=== PATIENT | female | born 1965 | race Caucasian/White ===

== ENCOUNTER 2018-04-10 14:23 | Inpatient (IN) | payer MEDICARE, OTHER ==
[2018-04-10] MEDS: LIDOCAINE 1% (MPF) 5 ML VIAL SC (15:30)
[2018-04-10 15:35] LABS: ADD MAN DIFF? NO
[2018-04-10 15:39] LABS: WHITE BLOOD COUNT 8.9 10^3/ul (4.8-10.8)
[2018-04-10 15:39] LABS: BASOPHILS % 0.3 % (0.0-2.0); EOSINOPHILS # 0.2 10^3/ul (0.0-0.5); EOSINOPHILS % 2.5 % (0.0-7.0); HEMATOCRIT 29.7 % (37.0-47.0); HEMOGLOBIN 8.7 g/dl (12.0-16.0); LYMPHOCYTES # 1.6 10^3/ul (0.8-2.9); LYMPHOCYTES % 17.6 % (15.0-51.0); MEAN CORPUSCULAR HEMOGLOBIN 22.8 pg (29.0-33.0); MEAN CORPUSCULAR HGB CONC 29.3 g/dl (32.0-37.0); MEAN CORPUSCULAR VOLUME 77.7 fl (82.0-101.0); MEAN PLATELET VOLUME 9.5 fl (7.4-10.4); MONOCYTE # 0.5 10^3/ul (0.3-0.9); NEUTROPHIL # 6.5 10^3/ul (1.6-7.5); NEUTROPHILS % 73.3 % (39.0-77.0); PLATELET COUNT 472 10^3/UL (140-415); RED BLOOD COUNT 3.82 10^6/ul (4.20-5.40)
[2018-04-10 16:01] LABS: ANION GAP 10 (5-13); BLOOD UREA NITROGEN 25 mg/dl (7-20); CARBON DIOXIDE 32 mmol/L (21-31); CHLORIDE 97 mmol/L (97-110); CREATININE 0.94 mg/dl (0.44-1.00); Estimated GFR > 60 mL/min (>60); GLUCOSE 249 mg/dl (70-220); POTASSIUM 4.7 mmol/L (3.5-5.1); SODIUM 139 mmol/L (135-144)
[2018-04-10] MEDS: OXYCODONE/ACETAMINOPHEN (5/325) TAB PO (16:39)
[2018-04-10] MEDS: CEFTRIAXONE 1 GM/50 ML (PMX) 50 ML IVPB (16:40)
[2018-04-10] MEDS: MUPIROCIN 2% 22 GM OINT TOP (16:41)
[2018-04-10] MEDS ORDERED: GLUCAGON 1 MG INJ IM (17:30)
[2018-04-10] MEDS ORDERED: GLUCOSE GEL 15 GRAM TUBE PO ×2 (17:30)
[2018-04-10] MEDS ORDERED: GLUCOSE GEL 15 GRAM TUBE BUCCAL (17:30)
[2018-04-10] MEDS ORDERED: NACL 0.9% 3 ML SYG IV (17:30)
[2018-04-10] MEDS ORDERED: DOCUSATE SODIUM 100 MG CAP PO (17:30)
[2018-04-10] MEDS ORDERED: DEXTROSE 50% 50 ML SYRINGE IV ×2 (17:30)
[2018-04-10] MEDS ORDERED: LORAZEPAM 1 MG TAB PO (19:00)
[2018-04-10] MEDS: INSULIN ASPART [NOVOLOG] 3 ML PEN SC (20:43)
[2018-04-10] MEDS: GABAPENTIN 100 MG CAP PO (20:49)
[2018-04-10] MEDS: ATORVASTATIN 10 MG TAB PO (20:52)
[2018-04-10] MEDS: FERROUS SULFATE (EC) 325 MG TAB PO (20:52)
[2018-04-10] MEDS: CEFEPIME 1GM/50 ML (PMX) 50 ML IVPB (21:16)
[2018-04-10] MEDS: HYDROmorphONE 2 MG TAB PO (21:23)
[2018-04-10] MEDS: LINEZOLID 600 MG/D5W (PMX) 300 ML IVPB (21:47)
[2018-04-11] MEDS: ACETAMINOPHEN 325 MG TAB PO (01:40)
[2018-04-11] MEDS: ONDANSETRON 4 MG INJ IV ×2 (01:50→22:02)
[2018-04-11] MEDS: ACCU-CHEK XX (02:00)
[2018-04-11] MEDS: PANTOPRAZOLE (EC) 40 MG TAB PO (06:21)
[2018-04-11 06:44] LABS: ADD MAN DIFF? NO
[2018-04-11] MEDS ORDERED: PANTOPRAZOLE (EC) 40 MG TAB PO (07:00)
[2018-04-11 07:05] LABS: WHITE BLOOD COUNT 8.1 10^3/ul (4.8-10.8)
[2018-04-11 07:05] LABS: BASOPHILS % 0.4 % (0.0-2.0); EOSINOPHILS # 0.2 10^3/ul (0.0-0.5); EOSINOPHILS % 2.1 % (0.0-7.0); HEMATOCRIT 26.8 % (37.0-47.0); LYMPHOCYTES # 1.6 10^3/ul (0.8-2.9); MEAN CORPUSCULAR HEMOGLOBIN 23.2 pg (29.0-33.0); MEAN CORPUSCULAR HGB CONC 29.9 g/dl (32.0-37.0); MEAN CORPUSCULAR VOLUME 77.7 fl (82.0-101.0); MEAN PLATELET VOLUME 10.2 fl (7.4-10.4); MONOCYTE # 0.6 10^3/ul (0.3-0.9); MONOCYTES % 6.8 % (0.0-11.0); NEUTROPHIL # 5.7 10^3/ul (1.6-7.5); NEUTROPHILS % 70.3 % (39.0-77.0); PLATELET COUNT 439 10^3/UL (140-415); RED BLOOD COUNT 3.45 10^6/ul (4.20-5.40); RED CELL DISTRIBUTION WIDTH 15.1 % (11.5-14.5)
[2018-04-11 07:39] LABS: ALANINE AMINOTRANSFERASE 18 IU/L (13-69); ALBUMIN 3.2 g/dl (3.3-4.9); ALBUMIN/GLOBULIN RATIO 0.86; ALKALINE PHOSPHATASE 186 IU/L (42-121); ANION GAP 8 (5-13); ASPARTATE AMINO TRANSFERASE 37 IU/L (15-46); BLOOD UREA NITROGEN 30 mg/dl (7-20); CALCIUM 8.7 mg/dl (8.4-10.2); CARBON DIOXIDE 32 mmol/L (21-31); CHLORIDE 98 mmol/L (97-110); CREATININE 1.16 mg/dl (0.44-1.00); Estimated GFR 49 mL/min (>60); GLUCOSE 251 mg/dl (70-220); MAGNESIUM 1.9 mg/dl (1.7-2.5); PHOSPHORUS 4.8 mg/dl (2.5-4.9); POTASSIUM 4.9 mmol/L (3.5-5.1); SODIUM 138 mmol/L (135-144); TOTAL PROTEIN 6.9 g/dl (6.1-8.1)
[2018-04-11] MEDS: CEFEPIME 1GM/50 ML (PMX) 50 ML IVPB ×2 (09:57→20:31)
[2018-04-11] MEDS: GABAPENTIN 100 MG CAP PO ×3 (09:58→20:31)
[2018-04-11] MEDS: LOSARTAN 25 MG TAB PO (09:59)
[2018-04-11] MEDS: ASCORBIC ACID 500 MG TAB PO (09:59)
[2018-04-11] MEDS: FERROUS SULFATE (EC) 325 MG TAB PO ×2 (09:59→20:31)
[2018-04-11] MEDS: FUROSEMIDE 40 MG TAB PO (09:59)
[2018-04-11] MEDS: FOLIC ACID 1 MG TAB PO (09:59)
[2018-04-11] MEDS: ASPIRIN 81 MG TAB PO (09:59)
[2018-04-11] MEDS: INSULIN GLARGINE [LANTus] (100 UNITS/ML) SYG SC (10:00)
[2018-04-11] MEDS: INSULIN ASPART [NOVOLOG] 3 ML PEN SC ×5 (10:01→20:37)
[2018-04-11] MEDS: ENOXAPARIN 30 MG/0.3 ML SYG SC (10:57)
[2018-04-11] MEDS: LINEZOLID 600 MG/D5W (PMX) 300 ML IVPB ×2 (12:35→22:02)
[2018-04-11] MEDS: HYDROmorphONE 2 MG TAB PO (16:59)
[2018-04-11] MEDS: HYDROmorphONE 1 MG/ML SYG IV (18:34)
[2018-04-11] MEDS: ATORVASTATIN 10 MG TAB PO (20:31)
[2018-04-12] MEDS: ACCU-CHEK XX (02:00)
[2018-04-12] MEDS: HYDROmorphONE 1 MG/ML SYG IV ×2 (04:02→22:18)
[2018-04-12] MEDS: PANTOPRAZOLE (EC) 40 MG TAB PO (05:35)
[2018-04-12 06:08] LABS: ADD MAN DIFF? NO
[2018-04-12 06:15] LABS: WHITE BLOOD COUNT 7.7 10^3/ul (4.8-10.8)
[2018-04-12 06:15] LABS: BASOPHILS % 0.1 % (0.0-2.0); EOSINOPHILS # 0.2 10^3/ul (0.0-0.5); EOSINOPHILS % 2.5 % (0.0-7.0); HEMATOCRIT 26.7 % (37.0-47.0); HEMOGLOBIN 7.8 g/dl (12.0-16.0); LYMPHOCYTES # 1.1 10^3/ul (0.8-2.9); LYMPHOCYTES % 14.6 % (15.0-51.0); MEAN CORPUSCULAR HEMOGLOBIN 22.8 pg (29.0-33.0); MEAN CORPUSCULAR HGB CONC 29.2 g/dl (32.0-37.0); MEAN CORPUSCULAR VOLUME 78.1 fl (82.0-101.0); MEAN PLATELET VOLUME 10.2 fl (7.4-10.4); MONOCYTE # 0.4 10^3/ul (0.3-0.9); MONOCYTES % 5.6 % (0.0-11.0); NEUTROPHIL # 5.9 10^3/ul (1.6-7.5); NEUTROPHILS % 76.7 % (39.0-77.0); PLATELET COUNT 459 10^3/UL (140-415); RED BLOOD COUNT 3.42 10^6/ul (4.20-5.40); RED CELL DISTRIBUTION WIDTH 15.3 % (11.5-14.5)
[2018-04-12 06:38] LABS: PHOSPHORUS 5.1 mg/dl (2.5-4.9)
[2018-04-12 06:38] LABS: MAGNESIUM 2.1 mg/dl (1.7-2.5)
[2018-04-12 06:53] LABS: ANION GAP 8 (5-13); BLOOD UREA NITROGEN 37 mg/dl (7-20); CALCIUM 8.8 mg/dl (8.4-10.2); CARBON DIOXIDE 29 mmol/L (21-31); CHLORIDE 99 mmol/L (97-110); CREATININE 1.33 mg/dl (0.44-1.00); Estimated GFR 41 mL/min (>60); GLUCOSE 275 mg/dl (70-220); POTASSIUM 4.4 mmol/L (3.5-5.1); SODIUM 136 mmol/L (135-144)
[2018-04-12] MEDS: FERROUS SULFATE (EC) 325 MG TAB PO ×2 (09:29→21:56)
[2018-04-12] MEDS: LOSARTAN 25 MG TAB PO (09:30)
[2018-04-12] MEDS: GABAPENTIN 100 MG CAP PO ×3 (09:30→21:58)
[2018-04-12] MEDS: ASCORBIC ACID 500 MG TAB PO (09:30)
[2018-04-12] MEDS: CEFEPIME 1GM/50 ML (PMX) 50 ML IVPB ×2 (09:32→21:06)
[2018-04-12] MEDS: FUROSEMIDE 40 MG TAB PO (09:32)
[2018-04-12] MEDS: ASPIRIN 81 MG TAB PO (09:32)
[2018-04-12] MEDS: FOLIC ACID 1 MG TAB PO (09:32)
[2018-04-12] MEDS: LINEZOLID 600 MG/D5W (PMX) 300 ML IVPB ×2 (09:32→21:55)
[2018-04-12] MEDS: INSULIN ASPART [NOVOLOG] 3 ML PEN SC ×7 (09:40→22:07)
[2018-04-12] MEDS: ENOXAPARIN 30 MG/0.3 ML SYG SC (09:42)
[2018-04-12] MEDS: INSULIN GLARGINE [LANTus] (100 UNITS/ML) SYG SC (09:43)
[2018-04-12] MEDS: SOD FERRIC GLUC COMPLX 125 MG in SOD CHLORIDE 0.9% 100 ML IVPB (17:39)
[2018-04-12] MEDS: LINAGLIPTIN 5 MG TABLET PO (17:39)
[2018-04-12] MEDS: ATORVASTATIN 10 MG TAB PO (21:56)
[2018-04-12 23:53] LABS: ADD UMIC YES; UR ASCORBIC ACID 20 mg/dL (NEGATIVE); UR BACTERIA FEW /HPF (NONE SEEN); UR BILIRUBIN (Dip) NEGATIVE (NEGATIVE); UR BLOOD (Dip) NEGATIVE (NEGATIVE); UR CLARITY SLIGHTLY CLOUDY (CLEAR); UR COLOR YELLOW (YELLOW); UR GLUCOSE (Dip) NEGATIVE (NEGATIVE); UR KETONES (Dip) NEGATIVE (NEGATIVE); UR LEUKOCYTE ESTERASE (Dip) TRACE Leu/ul (NEGATIVE); UR MUCUS FEW /HPF (NONE SEEN); UR NITRITE (Dip) NEGATIVE (NEGATIVE); UR RBC 1 /HPF (0-5); UR SPECIFIC GRAVITY (Dip) 1.017 (1.003-1.030); UR SQUAMOUS EPITHELIAL CELL FEW /HPF (FEW); UR TOTAL PROTEIN (Dip) NEGATIVE (NEGATIVE); UR UROBILINOGEN (Dip) NEGATIVE (NEGATIVE); UR WBC 16 /HPF (0-5)
[2018-04-13] MEDS: ACCU-CHEK XX (02:00)
[2018-04-13] MEDS: HYDROmorphONE 1 MG/ML SYG IV ×3 (04:24→16:26)
[2018-04-13] MEDS: PANTOPRAZOLE (EC) 40 MG TAB PO (05:34)
[2018-04-13 06:09] LABS: ADD MAN DIFF? NO
[2018-04-13 06:17] LABS: BASOPHILS % 0.3 % (0.0-2.0); EOSINOPHILS # 0.3 10^3/ul (0.0-0.5); EOSINOPHILS % 3.2 % (0.0-7.0); HEMATOCRIT 25.9 % (37.0-47.0); HEMOGLOBIN 7.5 g/dl (12.0-16.0); LYMPHOCYTES # 1.5 10^3/ul (0.8-2.9); LYMPHOCYTES % 18.8 % (15.0-51.0); MEAN CORPUSCULAR HEMOGLOBIN 22.7 pg (29.0-33.0); MEAN CORPUSCULAR VOLUME 78.2 fl (82.0-101.0); MEAN PLATELET VOLUME 10.4 fl (7.4-10.4); MONOCYTE # 0.5 10^3/ul (0.3-0.9); MONOCYTES % 6.2 % (0.0-11.0); NEUTROPHIL # 5.5 10^3/ul (1.6-7.5); NEUTROPHILS % 70.9 % (39.0-77.0); PLATELET COUNT 446 10^3/UL (140-415); RED BLOOD COUNT 3.31 10^6/ul (4.20-5.40); RED CELL DISTRIBUTION WIDTH 15.3 % (11.5-14.5)
[2018-04-13 06:17] LABS: WHITE BLOOD COUNT 7.8 10^3/ul (4.8-10.8)
[2018-04-13 06:59] LABS: ANION GAP 7 (5-13); BLOOD UREA NITROGEN 41 mg/dl (7-20); CALCIUM 8.7 mg/dl (8.4-10.2); CARBON DIOXIDE 29 mmol/L (21-31); CHLORIDE 100 mmol/L (97-110); CREATININE 1.41 mg/dl (0.44-1.00); Estimated GFR 39 mL/min (>60); GLUCOSE 163 mg/dl (70-220); POTASSIUM 4.1 mmol/L (3.5-5.1); SODIUM 136 mmol/L (135-144)
[2018-04-13] MEDS: ASPIRIN 81 MG TAB PO (08:02)
[2018-04-13] MEDS: FERROUS SULFATE (EC) 325 MG TAB PO (08:02)
[2018-04-13] MEDS: GABAPENTIN 100 MG CAP PO ×3 (08:03→21:17)
[2018-04-13] MEDS: LOSARTAN 25 MG TAB PO (08:03)
[2018-04-13] MEDS: FOLIC ACID 1 MG TAB PO (08:03)
[2018-04-13] MEDS: ASCORBIC ACID 500 MG TAB PO (08:03)
[2018-04-13] MEDS: LINAGLIPTIN 5 MG TABLET PO (08:03)
[2018-04-13] MEDS: FUROSEMIDE 40 MG TAB PO (08:03)
[2018-04-13] MEDS: CEFEPIME 1GM/50 ML (PMX) 50 ML IVPB ×2 (08:06→21:13)
[2018-04-13] MEDS: INSULIN ASPART [NOVOLOG] 3 ML PEN SC ×7 (08:13→21:00)
[2018-04-13] MEDS: ENOXAPARIN 30 MG/0.3 ML SYG SC (08:14)
[2018-04-13] MEDS: INSULIN GLARGINE [LANTus] (100 UNITS/ML) SYG SC (08:14)
[2018-04-13] MEDS: LINEZOLID 600 MG/D5W (PMX) 300 ML IVPB ×2 (08:31→22:12)
[2018-04-13] MEDS: SOD FERRIC GLUC COMPLX 125 MG in SOD CHLORIDE 0.9% 100 ML IVPB (12:23)
[2018-04-13] MEDS: ATORVASTATIN 10 MG TAB PO (21:13)
[2018-04-13] MEDS: BACITRACIN/POLYMYXIN 28.35 GM OINT TOP (21:19)
[2018-04-14] MEDS: HYDROmorphONE 1 MG/ML SYG IV ×3 (01:54→16:34)
[2018-04-14] MEDS: ACCU-CHEK XX (02:00)
[2018-04-14] MEDS: PANTOPRAZOLE (EC) 40 MG TAB PO (05:23)
[2018-04-14] MEDS: ACETAMINOPHEN 325 MG TAB PO (05:24)
[2018-04-14 05:41] LABS: ADD MAN DIFF? NO
[2018-04-14 05:43] LABS: BASOPHILS % 0.4 % (0.0-2.0); EOSINOPHILS # 0.3 10^3/ul (0.0-0.5); EOSINOPHILS % 3.7 % (0.0-7.0); HEMATOCRIT 26.7 % (37.0-47.0); HEMOGLOBIN 7.8 g/dl (12.0-16.0); LYMPHOCYTES # 1.2 10^3/ul (0.8-2.9); LYMPHOCYTES % 17.5 % (15.0-51.0); MEAN CORPUSCULAR HEMOGLOBIN 22.7 pg (29.0-33.0); MEAN CORPUSCULAR HGB CONC 29.2 g/dl (32.0-37.0); MEAN CORPUSCULAR VOLUME 77.8 fl (82.0-101.0); MEAN PLATELET VOLUME 9.8 fl (7.4-10.4); MONOCYTE # 0.6 10^3/ul (0.3-0.9); MONOCYTES % 7.8 % (0.0-11.0); NEUTROPHIL # 4.9 10^3/ul (1.6-7.5); NEUTROPHILS % 70.2 % (39.0-77.0); PLATELET COUNT 425 10^3/UL (140-415); RED BLOOD COUNT 3.43 10^6/ul (4.20-5.40); RED CELL DISTRIBUTION WIDTH 15.6 % (11.5-14.5)
[2018-04-14 06:26] LABS: ANION GAP 6 (5-13); BLOOD UREA NITROGEN 42 mg/dl (7-20); CALCIUM 8.7 mg/dl (8.4-10.2); CARBON DIOXIDE 29 mmol/L (21-31); CHLORIDE 103 mmol/L (97-110); CREATININE 1.34 mg/dl (0.44-1.00); Estimated GFR 41 mL/min (>60); GLUCOSE 185 mg/dl (70-220); POTASSIUM 4.3 mmol/L (3.5-5.1); SODIUM 138 mmol/L (135-144)
[2018-04-14] MEDS: GABAPENTIN 100 MG CAP PO ×3 (07:38→21:00)
[2018-04-14] MEDS: CEFEPIME 1GM/50 ML (PMX) 50 ML IVPB (07:40)
[2018-04-14] MEDS: LINAGLIPTIN 5 MG TABLET PO (07:40)
[2018-04-14] MEDS: FUROSEMIDE 40 MG TAB PO (07:40)
[2018-04-14] MEDS: ASPIRIN 81 MG TAB PO (07:41)
[2018-04-14] MEDS: ASCORBIC ACID 500 MG TAB PO (07:41)
[2018-04-14] MEDS: FOLIC ACID 1 MG TAB PO (07:41)
[2018-04-14] MEDS: LINEZOLID 600 MG/D5W (PMX) 300 ML IVPB ×2 (07:41→21:31)
[2018-04-14] MEDS: LOSARTAN 25 MG TAB PO (07:41)
[2018-04-14] MEDS: INSULIN ASPART [NOVOLOG] 3 ML PEN SC ×7 (07:49→21:00)
[2018-04-14] MEDS: INSULIN GLARGINE [LANTus] (100 UNITS/ML) SYG SC (07:50)
[2018-04-14] MEDS: ENOXAPARIN 30 MG/0.3 ML SYG SC (07:50)
[2018-04-14] MEDS: BACITRACIN/POLYMYXIN 28.35 GM OINT TOP ×2 (09:50→21:32)
[2018-04-14] MEDS: SOD FERRIC GLUC COMPLX 125 MG in SOD CHLORIDE 0.9% 100 ML IVPB (13:30)
[2018-04-14] MEDS: ATORVASTATIN 10 MG TAB PO (21:27)
[2018-04-14] MEDS: MEROPENEM 1 GM/50ML(PMX) 50 ML IVPB (23:26)
[2018-04-15] MEDS: ACCU-CHEK XX (02:00)
[2018-04-15] MEDS: PANTOPRAZOLE (EC) 40 MG TAB PO (06:00)
[2018-04-15] MEDS: INSULIN ASPART [NOVOLOG] 3 ML PEN SC ×7 (08:00→21:00)
[2018-04-15] MEDS: MEROPENEM 1 GM/50ML(PMX) 50 ML IVPB ×2 (08:14→21:15)
[2018-04-15] MEDS: ASCORBIC ACID 500 MG TAB PO (08:15)
[2018-04-15] MEDS: LINAGLIPTIN 5 MG TABLET PO (08:15)
[2018-04-15] MEDS: FOLIC ACID 1 MG TAB PO (08:15)
[2018-04-15] MEDS: LOSARTAN 25 MG TAB PO (08:15)
[2018-04-15] MEDS: ASPIRIN 81 MG TAB PO (08:15)
[2018-04-15] MEDS: FUROSEMIDE 40 MG TAB PO (08:15)
[2018-04-15] MEDS: GABAPENTIN 100 MG CAP PO ×3 (08:15→21:02)
[2018-04-15] MEDS: INSULIN GLARGINE [LANTus] (100 UNITS/ML) SYG SC (08:38)
[2018-04-15] MEDS: BACITRACIN/POLYMYXIN 28.35 GM OINT TOP ×2 (08:40→21:14)
[2018-04-15] MEDS: ENOXAPARIN 30 MG/0.3 ML SYG SC (08:40)
[2018-04-15] MEDS: LINEZOLID 600 MG/D5W (PMX) 300 ML IVPB ×2 (09:56→21:56)
[2018-04-15] MEDS: SOD FERRIC GLUC COMPLX 125 MG in SOD CHLORIDE 0.9% 100 ML IVPB (14:06)
[2018-04-15 16:00] LABS: AADO2 Arterial 46.9 mmHg (7.0-24.0); Allen Test ACCEPTAB; Arterial Base Excess 4.8 mmol/L (-3.0-3); Arterial Blood Gas Oxygen Sat 98.1 mmHG (95.0-98.0); Arterial COHb 0.6 % (0.0-3.0); Arterial Fraction of Oxyhgb 97.3 % (93.0-99.0); Arterial HCO3 29.6 mmol/L (22.0-26.0); Arterial MetHb 0.2 % (0.0-1.5); Arterial pCO2 44.9 mmhg (35-45); MODE NASAL CANNULA; Site Right Radial
[2018-04-15] MEDS: ALBUTEROL/IPRATROPIUM (NEB) 3 ML AMP HHN ×2 (16:01→21:07)
[2018-04-15 16:08] LABS: ABNORMAL IP MESSAGE 1; BASOPHILS % 0.3 % (0.0-2.0); EOSINOPHILS % 0.6 % (0.0-7.0); HEMATOCRIT 27.5 % (37.0-47.0); HEMOGLOBIN 8.1 g/dl (12.0-16.0); LYMPHOCYTES # 0.5 10^3/ul (0.8-2.9); LYMPHOCYTES % 7.6 % (15.0-51.0); MEAN CORPUSCULAR HEMOGLOBIN 22.8 pg (29.0-33.0); MEAN CORPUSCULAR HGB CONC 29.5 g/dl (32.0-37.0); MEAN CORPUSCULAR VOLUME 77.5 fl (82.0-101.0); MEAN PLATELET VOLUME 9.8 fl (7.4-10.4); MONOCYTE # 0.4 10^3/ul (0.3-0.9); MONOCYTES % 6.2 % (0.0-11.0); NEUTROPHIL # 5.5 10^3/ul (1.6-7.5); PLATELET COUNT 405 10^3/UL (140-415); RED BLOOD COUNT 3.55 10^6/ul (4.20-5.40); RED CELL DISTRIBUTION WIDTH 15.9 % (11.5-14.5)
[2018-04-15 16:08] LABS: WHITE BLOOD COUNT 6.5 10^3/ul (4.8-10.8)
[2018-04-15 16:09] LABS: ADD MAN DIFF? NO
[2018-04-15 16:27] LABS: ANION GAP 7 (5-13); BLOOD UREA NITROGEN 26 mg/dl (7-20); CALCIUM 8.7 mg/dl (8.4-10.2); CARBON DIOXIDE 32 mmol/L (21-31); CHLORIDE 103 mmol/L (97-110); CREATININE 0.94 mg/dl (0.44-1.00); Estimated GFR > 60 mL/min (>60); GLUCOSE 103 mg/dl (70-220); POTASSIUM 4.1 mmol/L (3.5-5.1); SODIUM 142 mmol/L (135-144)
[2018-04-15 16:28] LABS: AMMONIA < 9 umol/l (9-30)
[2018-04-15] MEDS: ATORVASTATIN 10 MG TAB PO (21:01)
[2018-04-15] MEDS: NYSTATIN 30 GM POWDER BTL TOP (21:14)
[2018-04-15] MEDS: HYDROmorphONE 1 MG/ML SYG IV (21:15)
[2018-04-16] MEDS: ACCU-CHEK XX (02:00)
[2018-04-16] MEDS: PANTOPRAZOLE (EC) 40 MG TAB PO (06:00)
[2018-04-16] MEDS: INSULIN ASPART [NOVOLOG] 3 ML PEN SC ×7 (07:56→21:00)
[2018-04-16] MEDS: ASPIRIN 81 MG TAB PO (08:37)
[2018-04-16] MEDS: FOLIC ACID 1 MG TAB PO (08:37)
[2018-04-16] MEDS: GABAPENTIN 100 MG CAP PO ×3 (08:38→21:47)
[2018-04-16] MEDS: LINAGLIPTIN 5 MG TABLET PO (08:38)
[2018-04-16] MEDS: MEROPENEM 1 GM/50ML(PMX) 50 ML IVPB ×2 (08:38→23:53)
[2018-04-16] MEDS: ENOXAPARIN 30 MG/0.3 ML SYG SC (08:43)
[2018-04-16] MEDS: INSULIN GLARGINE [LANTus] (100 UNITS/ML) SYG SC (08:44)
[2018-04-16] MEDS: BACITRACIN/POLYMYXIN 28.35 GM OINT TOP ×2 (08:45→21:48)
[2018-04-16] MEDS: NYSTATIN 30 GM POWDER BTL TOP ×2 (08:45→21:48)
[2018-04-16] MEDS: LOSARTAN 25 MG TAB PO (08:46)
[2018-04-16] MEDS: FUROSEMIDE 40 MG TAB PO (08:46)
[2018-04-16] MEDS: ASCORBIC ACID 500 MG TAB PO (08:47)
[2018-04-16] MEDS: LINEZOLID 600 MG/D5W (PMX) 300 ML IVPB ×2 (11:39→21:43)
[2018-04-16] MEDS: SOD FERRIC GLUC COMPLX 125 MG in SOD CHLORIDE 0.9% 100 ML IVPB (12:45)
[2018-04-16] MEDS: FUROSEMIDE 40 MG INJ IV (14:33)
[2018-04-16 15:17] LABS: AADO2 Arterial 20.1 mmHg (7.0-24.0); Allen Test ACCEPTAB; Arterial Base Excess 7.1 mmol/L (-3.0-3); Arterial Blood Gas Oxygen Sat 97.8 mmHG (95.0-98.0); Arterial COHb 0.7 % (0.0-3.0); Arterial HCO3 33.6 mmol/L (22.0-26.0); Arterial MetHb 0.1 % (0.0-1.5); MODE NASAL CANNULA; Site Right Radial
[2018-04-16] MEDS: ALBUTEROL/IPRATROPIUM (NEB) 3 ML AMP HHN ×2 (16:18→21:00)
[2018-04-16] MEDS: ATORVASTATIN 10 MG TAB PO (21:47)
[2018-04-17] MEDS: ALBUTEROL/IPRATROPIUM (NEB) 3 ML AMP HHN ×6 (01:00→21:06)
[2018-04-17] MEDS: ACCU-CHEK XX (02:00)
[2018-04-17] MEDS: ACETAMINOPHEN 325 MG TAB PO ×2 (02:29→13:54)
[2018-04-17 05:06] LABS: ADD MAN DIFF? NO
[2018-04-17 05:14] LABS: ABNORMAL IP MESSAGE 1; BASOPHILS % 0.3 % (0.0-2.0); EOSINOPHILS % 0.8 % (0.0-7.0); HEMATOCRIT 26.4 % (37.0-47.0); HEMOGLOBIN 7.6 g/dl (12.0-16.0); LYMPHOCYTES # 1.2 10^3/ul (0.8-2.9); LYMPHOCYTES % 31.7 % (15.0-51.0); MEAN CORPUSCULAR HEMOGLOBIN 23.3 pg (29.0-33.0); MEAN CORPUSCULAR HGB CONC 28.8 g/dl (32.0-37.0); MEAN PLATELET VOLUME 9.7 fl (7.4-10.4); MONOCYTE # 0.3 10^3/ul (0.3-0.9); MONOCYTES % 8.9 % (0.0-11.0); NEUTROPHIL # 2.2 10^3/ul (1.6-7.5); PLATELET COUNT 311 10^3/UL (140-415); RED BLOOD COUNT 3.26 10^6/ul (4.20-5.40); RED CELL DISTRIBUTION WIDTH 16.3 % (11.5-14.5)
[2018-04-17 05:14] LABS: WHITE BLOOD COUNT 3.8 10^3/ul (4.8-10.8)
[2018-04-17 05:32] LABS: POSITIVE DIFF @See below
[2018-04-17 05:36] LABS: MAGNESIUM 2.1 mg/dl (1.7-2.5)
[2018-04-17 05:36] LABS: PHOSPHORUS 2.7 mg/dl (2.5-4.9)
[2018-04-17 05:43] LABS: ANION GAP 7 (5-13); BLOOD UREA NITROGEN 17 mg/dl (7-20); CALCIUM 8.3 mg/dl (8.4-10.2); CARBON DIOXIDE 38 mmol/L (21-31); CHLORIDE 99 mmol/L (97-110); CREATININE 0.93 mg/dl (0.44-1.00); Estimated GFR > 60 mL/min (>60); GLUCOSE 80 mg/dl (70-220); POTASSIUM 3.7 mmol/L (3.5-5.1); SODIUM 144 mmol/L (135-144)
[2018-04-17] MEDS: PANTOPRAZOLE (EC) 40 MG TAB PO (06:00)
[2018-04-17] MEDS: INSULIN ASPART [NOVOLOG] 3 ML PEN SC ×7 (08:00→22:02)
[2018-04-17] MEDS: FUROSEMIDE 40 MG TAB PO (09:12)
[2018-04-17] MEDS: GABAPENTIN 100 MG CAP PO ×3 (09:13→21:42)
[2018-04-17] MEDS: LINAGLIPTIN 5 MG TABLET PO (09:13)
[2018-04-17] MEDS: ASPIRIN 81 MG TAB PO (09:13)
[2018-04-17] MEDS: FOLIC ACID 1 MG TAB PO (09:13)
[2018-04-17] MEDS: ASCORBIC ACID 500 MG TAB PO (09:13)
[2018-04-17] MEDS: MEROPENEM 1 GM/50ML(PMX) 50 ML IVPB (09:13)
[2018-04-17] MEDS: LOSARTAN 25 MG TAB PO (09:14)
[2018-04-17] MEDS: BACITRACIN/POLYMYXIN 28.35 GM OINT TOP ×2 (09:14→21:45)
[2018-04-17] MEDS: NYSTATIN 30 GM POWDER BTL TOP ×2 (09:14→21:43)
[2018-04-17] MEDS: ENOXAPARIN 30 MG/0.3 ML SYG SC (09:22)
[2018-04-17] MEDS: INSULIN GLARGINE [LANTus] (100 UNITS/ML) SYG SC (09:22)
[2018-04-17] MEDS: LINEZOLID 600 MG/D5W (PMX) 300 ML IVPB (09:53)
[2018-04-17] MEDS: KETOROLAC 15 MG INJ IV (14:24)
[2018-04-17] MEDS: METHYLPREDNISOLONE 40 MG INJ IV ×2 (14:24→21:43)
[2018-04-17] MEDS ORDERED: SILVER SULFADIAZINE 1% 400 GM CR TOP (16:30)
[2018-04-17] MEDS: SULFAMETHOXAZOLE IVPB ×2 (17:08→21:44)
[2018-04-17] MEDS: SILVER SULFADIAZINE 1% 25 GM CR TOP ×2 (17:08→22:03)
[2018-04-17] MEDS: DEXTROSE IVPB ×2 (17:08→21:44)
[2018-04-17] MEDS: TRIMETHOPRIM IVPB ×2 (17:08→21:44)
[2018-04-17] MEDS: FUROSEMIDE 40 MG INJ IV (18:04)
[2018-04-17] MEDS: ATORVASTATIN 10 MG TAB PO (21:42)
[2018-04-18] MEDS: ALBUTEROL/IPRATROPIUM (NEB) 3 ML AMP HHN ×6 (01:06→21:00)
[2018-04-18] MEDS: ACCU-CHEK XX (02:21)
[2018-04-18] MEDS: PANTOPRAZOLE (EC) 40 MG TAB PO (05:33)
[2018-04-18] MEDS: METHYLPREDNISOLONE 40 MG INJ IV ×3 (05:34→21:34)
[2018-04-18] MEDS: FUROSEMIDE 40 MG INJ IV ×2 (05:34→17:17)
[2018-04-18 05:36] LABS: ADD MAN DIFF? NO
[2018-04-18 05:41] LABS: ABNORMAL IP MESSAGE 1; HEMOGLOBIN 8.2 g/dl (12.0-16.0); LYMPHOCYTES # 0.5 10^3/ul (0.8-2.9); MEAN CORPUSCULAR HEMOGLOBIN 23.7 pg (29.0-33.0); MEAN CORPUSCULAR HGB CONC 29.3 g/dl (32.0-37.0); MEAN CORPUSCULAR VOLUME 80.9 fl (82.0-101.0); MONOCYTE # 0.1 10^3/ul (0.3-0.9); MONOCYTES % 1.6 % (0.0-11.0); NEUTROPHIL # 2.6 10^3/ul (1.6-7.5); NEUTROPHILS % 81.8 % (39.0-77.0); PLATELET COUNT 297 10^3/UL (140-415); RED BLOOD COUNT 3.46 10^6/ul (4.20-5.40); RED CELL DISTRIBUTION WIDTH 16.8 % (11.5-14.5)
[2018-04-18 05:41] LABS: WHITE BLOOD COUNT 3.2 10^3/ul (4.8-10.8)
[2018-04-18] MEDS: SULFAMETHOXAZOLE IVPB ×2 (06:00→13:55)
[2018-04-18] MEDS: TRIMETHOPRIM IVPB ×2 (06:00→13:55)
[2018-04-18] MEDS: DEXTROSE IVPB ×2 (06:00→13:55)
[2018-04-18 06:04] LABS: ANION GAP 12 (5-13); BLOOD UREA NITROGEN 26 mg/dl (7-20); CALCIUM 8.6 mg/dl (8.4-10.2); CARBON DIOXIDE 31 mmol/L (21-31); CHLORIDE 97 mmol/L (97-110); CREATININE 1.01 mg/dl (0.44-1.00); Estimated GFR 57 mL/min (>60); GLUCOSE 345 mg/dl (70-220); MAGNESIUM 2.2 mg/dl (1.7-2.5); PHOSPHORUS 3.9 mg/dl (2.5-4.9); POTASSIUM 4.4 mmol/L (3.5-5.1); SODIUM 140 mmol/L (135-144)
[2018-04-18 06:28] LABS: POSITIVE DIFF @See below
[2018-04-18 06:29] LABS: LYMPHOCYTES % 16.3 % (15.0-51.0)
[2018-04-18] MEDS: INSULIN ASPART [NOVOLOG] 3 ML PEN SC ×8 (07:57→21:40)
[2018-04-18] MEDS: ASPIRIN 81 MG TAB PO (08:46)
[2018-04-18] MEDS: GABAPENTIN 100 MG CAP PO ×3 (08:46→21:30)
[2018-04-18] MEDS: FOLIC ACID 1 MG TAB PO (08:46)
[2018-04-18] MEDS: ASCORBIC ACID 500 MG TAB PO (08:47)
[2018-04-18] MEDS: LOSARTAN 25 MG TAB PO (08:48)
[2018-04-18] MEDS: ENOXAPARIN 30 MG/0.3 ML SYG SC (08:56)
[2018-04-18] MEDS ORDERED: INSULIN GLARGINE [LANTus] (100 UNITS/ML) SYG SC (09:00)
[2018-04-18] MEDS ORDERED: LINAGLIPTIN 5 MG TABLET PO (09:00)
[2018-04-18] MEDS ORDERED: NPH, HUMAN INSULIN ISOPHANE 3ML VIAL SC ×2 (09:00)
[2018-04-18] MEDS: BACITRACIN/POLYMYXIN 28.35 GM OINT TOP ×2 (09:57→21:34)
[2018-04-18] MEDS: SILVER SULFADIAZINE 1% 25 GM CR TOP ×3 (09:57→21:34)
[2018-04-18] MEDS: NYSTATIN 30 GM POWDER BTL TOP ×2 (09:57→21:34)
[2018-04-18] MEDS: LINAGLIPTIN 5 MG TABLET PO (09:57)
[2018-04-18] MEDS: INSULIN GLARGINE [LANTus] (100 UNITS/ML) SYG SC (10:00)
[2018-04-18] MEDS: ATORVASTATIN 10 MG TAB PO (21:30)
[2018-04-18] MEDS: TRIMETHOPRIM/SULFAMETHOX (DS) TAB PO (21:31)
[2018-04-19] MEDS: ALBUTEROL/IPRATROPIUM (NEB) 3 ML AMP HHN ×6 (00:32→21:58)
[2018-04-19] MEDS: ACCU-CHEK XX (01:42)
[2018-04-19] MEDS: PANTOPRAZOLE (EC) 40 MG TAB PO (05:48)
[2018-04-19] MEDS: METHYLPREDNISOLONE 40 MG INJ IV ×3 (05:48→20:59)
[2018-04-19] MEDS: FUROSEMIDE 40 MG INJ IV (05:49)
[2018-04-19 06:31] LABS: BLOOD UREA NITROGEN 41 mg/dl (7-20)
[2018-04-19] MEDS ORDERED: NPH, HUMAN INSULIN ISOPHANE 3ML VIAL SC (08:00)
[2018-04-19] MEDS: INSULIN ASPART [NOVOLOG] 3 ML PEN SC ×7 (08:09→20:59)
[2018-04-19] MEDS: ENOXAPARIN 30 MG/0.3 ML SYG SC (09:19)
[2018-04-19] MEDS: INSULIN GLARGINE [LANTus] (100 UNITS/ML) SYG SC (09:20)
[2018-04-19] MEDS: ASPIRIN 81 MG TAB PO (09:23)
[2018-04-19] MEDS: LINAGLIPTIN 5 MG TABLET PO (09:23)
[2018-04-19] MEDS: TRIMETHOPRIM/SULFAMETHOX (DS) TAB PO (09:23)
[2018-04-19] MEDS: FOLIC ACID 1 MG TAB PO (09:23)
[2018-04-19] MEDS: ASCORBIC ACID 500 MG TAB PO (09:23)
[2018-04-19] MEDS: GABAPENTIN 100 MG CAP PO ×3 (09:23→20:58)
[2018-04-19] MEDS: NYSTATIN 30 GM POWDER BTL TOP ×2 (09:44→20:58)
[2018-04-19] MEDS: SILVER SULFADIAZINE 1% 25 GM CR TOP ×2 (09:44→20:58)
[2018-04-19] MEDS: BACITRACIN/POLYMYXIN 28.35 GM OINT TOP ×2 (09:46→20:59)
[2018-04-19] MEDS: GENTAMICIN 0.1% 15 GM OINT TOP ×2 (12:14→20:58)
[2018-04-19] MEDS: CEFTAZIDIME 1GM/50 ML (PMX) 50 ML IVPB ×2 (12:14→21:27)
[2018-04-19] MEDS: ATORVASTATIN 10 MG TAB PO (20:57)
[2018-04-20] MEDS: ALBUTEROL/IPRATROPIUM (NEB) 3 ML AMP HHN ×6 (01:00→21:15)
[2018-04-20] MEDS: ACCU-CHEK XX (02:00)
[2018-04-20] MEDS: PANTOPRAZOLE (EC) 40 MG TAB PO ×2 (05:15→19:20)
[2018-04-20 06:01] LABS: ADD MAN DIFF? NO
[2018-04-20 06:21] LABS: WHITE BLOOD COUNT 7.7 10^3/ul (4.8-10.8)
[2018-04-20 06:21] LABS: BASOPHILS % 0.1 % (0.0-2.0); HEMATOCRIT 27.8 % (37.0-47.0); HEMOGLOBIN 8.2 g/dl (12.0-16.0); LYMPHOCYTES # 1.2 10^3/ul (0.8-2.9); LYMPHOCYTES % 15.5 % (15.0-51.0); MEAN CORPUSCULAR HEMOGLOBIN 23.6 pg (29.0-33.0); MEAN CORPUSCULAR HGB CONC 29.5 g/dl (32.0-37.0); MEAN CORPUSCULAR VOLUME 79.9 fl (82.0-101.0); MEAN PLATELET VOLUME 10.5 fl (7.4-10.4); MONOCYTE # 0.6 10^3/ul (0.3-0.9); MONOCYTES % 7.2 % (0.0-11.0); NEUTROPHIL # 5.9 10^3/ul (1.6-7.5); NEUTROPHILS % 77.1 % (39.0-77.0); PLATELET COUNT 241 10^3/UL (140-415); RED BLOOD COUNT 3.48 10^6/ul (4.20-5.40); RED CELL DISTRIBUTION WIDTH 17.2 % (11.5-14.5)
[2018-04-20 06:49] LABS: ANION GAP 7 (5-13); BLOOD UREA NITROGEN 48 mg/dl (7-20); CALCIUM 8.9 mg/dl (8.4-10.2); CARBON DIOXIDE 33 mmol/L (21-31); CHLORIDE 98 mmol/L (97-110); CREATININE 1.26 mg/dl (0.44-1.00); Estimated GFR 44 mL/min (>60); GLUCOSE 265 mg/dl (70-220); SODIUM 138 mmol/L (135-144)
[2018-04-20] MEDS: INSULIN ASPART [NOVOLOG] 3 ML PEN SC ×7 (08:08→21:00)
[2018-04-20] MEDS: ENOXAPARIN 30 MG/0.3 ML SYG SC (08:20)
[2018-04-20] MEDS: INSULIN GLARGINE [LANTus] (100 UNITS/ML) SYG SC (08:20)
[2018-04-20] MEDS: METHYLPREDNISOLONE 40 MG INJ IV ×2 (08:23→21:22)
[2018-04-20] MEDS: ASPIRIN 81 MG TAB PO (08:23)
[2018-04-20] MEDS: FOLIC ACID 1 MG TAB PO (08:24)
[2018-04-20] MEDS: ASCORBIC ACID 500 MG TAB PO (08:24)
[2018-04-20] MEDS: LINAGLIPTIN 5 MG TABLET PO (08:24)
[2018-04-20] MEDS: GABAPENTIN 100 MG CAP PO ×3 (08:24→21:22)
[2018-04-20] MEDS: GENTAMICIN 0.1% 15 GM OINT TOP ×2 (08:25→21:33)
[2018-04-20] MEDS: SILVER SULFADIAZINE 1% 25 GM CR TOP ×2 (08:25→21:23)
[2018-04-20] MEDS: NYSTATIN 30 GM POWDER BTL TOP ×2 (08:25→21:23)
[2018-04-20] MEDS: BACITRACIN/POLYMYXIN 28.35 GM OINT TOP ×4 (09:00→21:00)
[2018-04-20] MEDS: CEFTAZIDIME 1GM/50 ML (PMX) 50 ML IVPB ×2 (09:22→21:22)
[2018-04-20] MEDS: ATORVASTATIN 10 MG TAB PO (21:22)
[2018-04-21] MEDS: ALBUTEROL/IPRATROPIUM (NEB) 3 ML AMP HHN ×6 (01:42→20:56)
[2018-04-21] MEDS: ACCU-CHEK XX (02:00)
[2018-04-21 05:35] LABS: ADD MAN DIFF? NO
[2018-04-21 05:42] LABS: HEMATOCRIT 29.3 % (37.0-47.0); HEMOGLOBIN 8.8 g/dl (12.0-16.0); LYMPHOCYTES # 0.9 10^3/ul (0.8-2.9); LYMPHOCYTES % 15.1 % (15.0-51.0); MEAN CORPUSCULAR HEMOGLOBIN 23.9 pg (29.0-33.0); MEAN CORPUSCULAR VOLUME 79.6 fl (82.0-101.0); MEAN PLATELET VOLUME 10.4 fl (7.4-10.4); MONOCYTE # 0.3 10^3/ul (0.3-0.9); NEUTROPHIL # 4.6 10^3/ul (1.6-7.5); PLATELET COUNT 211 10^3/UL (140-415); RED BLOOD COUNT 3.68 10^6/ul (4.20-5.40); RED CELL DISTRIBUTION WIDTH 17.2 % (11.5-14.5)
[2018-04-21 05:42] LABS: WHITE BLOOD COUNT 5.8 10^3/ul (4.8-10.8)
[2018-04-21] MEDS: PANTOPRAZOLE (EC) 40 MG TAB PO ×2 (06:15→17:32)
[2018-04-21 06:42] LABS: ANION GAP 8 (5-13); BLOOD UREA NITROGEN 41 mg/dl (7-20); CARBON DIOXIDE 37 mmol/L (21-31); CHLORIDE 98 mmol/L (97-110); CREATININE 0.97 mg/dl (0.44-1.00); Estimated GFR 60 mL/min (>60); GLUCOSE 138 mg/dl (70-220); SODIUM 143 mmol/L (135-144)
[2018-04-21] MEDS: INSULIN ASPART [NOVOLOG] 3 ML PEN SC ×7 (07:42→20:22)
[2018-04-21] MEDS: ONDANSETRON 4 MG INJ IV (08:43)
[2018-04-21] MEDS: ASCORBIC ACID 500 MG TAB PO (09:00)
[2018-04-21] MEDS: ASPIRIN 81 MG TAB PO (09:00)
[2018-04-21] MEDS: LINAGLIPTIN 5 MG TABLET PO (09:00)
[2018-04-21] MEDS: GABAPENTIN 100 MG CAP PO ×3 (09:00→21:00)
[2018-04-21] MEDS: SILVER SULFADIAZINE 1% 25 GM CR TOP ×2 (09:00→21:00)
[2018-04-21] MEDS: INSULIN GLARGINE [LANTus] (100 UNITS/ML) SYG SC (09:00)
[2018-04-21] MEDS: FOLIC ACID 1 MG TAB PO (09:00)
[2018-04-21] MEDS: METHYLPREDNISOLONE 40 MG INJ IV ×2 (09:02→21:38)
[2018-04-21] MEDS: CEFTAZIDIME 1GM/50 ML (PMX) 50 ML IVPB ×2 (09:02→21:38)
[2018-04-21] MEDS: ENOXAPARIN 30 MG/0.3 ML SYG SC (09:14)
[2018-04-21] MEDS: NYSTATIN 30 GM POWDER BTL TOP ×2 (11:30→21:40)
[2018-04-21] MEDS: GENTAMICIN 0.1% 15 GM OINT TOP ×2 (11:30→21:00)
[2018-04-21] MEDS: BACITRACIN/POLYMYXIN 28.35 GM OINT TOP ×2 (11:32→21:00)
[2018-04-21] MEDS: ATORVASTATIN 10 MG TAB PO (21:00)
[2018-04-22] MEDS: ACCU-CHEK XX (02:00)
[2018-04-22] MEDS: ALBUTEROL/IPRATROPIUM (NEB) 3 ML AMP HHN ×6 (02:18→21:00)
[2018-04-22 05:37] LABS: ADD MAN DIFF? NO
[2018-04-22 05:52] LABS: WHITE BLOOD COUNT 8.4 10^3/ul (4.8-10.8)
[2018-04-22 05:52] LABS: BASOPHILS % 0.1 % (0.0-2.0); HEMATOCRIT 31.4 % (37.0-47.0); HEMOGLOBIN 9.2 g/dl (12.0-16.0); LYMPHOCYTES % 11.7 % (15.0-51.0); MEAN CORPUSCULAR HEMOGLOBIN 23.6 pg (29.0-33.0); MEAN CORPUSCULAR HGB CONC 29.3 g/dl (32.0-37.0); MEAN CORPUSCULAR VOLUME 80.5 fl (82.0-101.0); MEAN PLATELET VOLUME 10.7 fl (7.4-10.4); MONOCYTE # 0.4 10^3/ul (0.3-0.9); MONOCYTES % 4.2 % (0.0-11.0); NEUTROPHIL # 6.9 10^3/ul (1.6-7.5); NEUTROPHILS % 82.7 % (39.0-77.0); PLATELET COUNT 225 10^3/UL (140-415); RED CELL DISTRIBUTION WIDTH 17.1 % (11.5-14.5)
[2018-04-22 05:54] LABS: ALANINE AMINOTRANSFERASE 21 IU/L (13-69); ALBUMIN 3.1 g/dl (3.3-4.9); ALBUMIN/GLOBULIN RATIO 0.73; ALKALINE PHOSPHATASE 86 IU/L (42-121); ANION GAP 5 (5-13); ASPARTATE AMINO TRANSFERASE 17 IU/L (15-46); BLOOD UREA NITROGEN 32 mg/dl (7-20); CALCIUM 8.6 mg/dl (8.4-10.2); CARBON DIOXIDE 37 mmol/L (21-31); CHLORIDE 101 mmol/L (97-110); CREATININE 0.75 mg/dl (0.44-1.00); Estimated GFR > 60 mL/min (>60); GLUCOSE 230 mg/dl (70-220); SODIUM 143 mmol/L (135-144); TOTAL PROTEIN 7.3 g/dl (6.1-8.1)
[2018-04-22] MEDS: PANTOPRAZOLE (EC) 40 MG TAB PO ×2 (06:00→17:26)
[2018-04-22] MEDS: INSULIN ASPART [NOVOLOG] 3 ML PEN SC ×7 (07:45→21:00)
[2018-04-22] MEDS: INSULIN GLARGINE [LANTus] (100 UNITS/ML) SYG SC (08:27)
[2018-04-22] MEDS: LINAGLIPTIN 5 MG TABLET PO (08:33)
[2018-04-22] MEDS: FOLIC ACID 1 MG TAB PO (08:34)
[2018-04-22] MEDS: METHYLPREDNISOLONE 40 MG INJ IV ×2 (08:34→21:24)
[2018-04-22] MEDS: ASCORBIC ACID 500 MG TAB PO (08:34)
[2018-04-22] MEDS: ASPIRIN 81 MG TAB PO (08:34)
[2018-04-22] MEDS: GABAPENTIN 100 MG CAP PO ×4 (08:34→21:25)
[2018-04-22] MEDS: NYSTATIN 30 GM POWDER BTL TOP ×2 (08:36→21:44)
[2018-04-22] MEDS: BACITRACIN/POLYMYXIN 28.35 GM OINT TOP ×2 (08:36→21:45)
[2018-04-22] MEDS: GENTAMICIN 0.1% 15 GM OINT TOP ×2 (08:36→21:45)
[2018-04-22] MEDS: SILVER SULFADIAZINE 1% 25 GM CR TOP ×2 (08:37→21:45)
[2018-04-22] MEDS: ENOXAPARIN 30 MG/0.3 ML SYG SC (08:38)
[2018-04-22] MEDS: CEFTAZIDIME 1GM/50 ML (PMX) 50 ML IVPB ×2 (08:51→21:24)
[2018-04-22] MEDS: ONDANSETRON 4 MG INJ IV (09:53)
[2018-04-22] MEDS: traMADol 50 MG TAB PO (12:06)
[2018-04-22] MEDS: FUROSEMIDE 40 MG INJ IV (12:06)
[2018-04-22] MEDS: ATORVASTATIN 10 MG TAB PO ×2 (21:00→21:24)
[2018-04-22] MEDS: ACETAMINOPHEN 325 MG TAB PO (21:25)
[2018-04-23] MEDS: ACETAMINOPHEN 325 MG TAB PO ×2 (00:56→13:25)
[2018-04-23] MEDS: ALBUTEROL/IPRATROPIUM (NEB) 3 ML AMP HHN ×6 (01:35→20:40)
[2018-04-23] MEDS: ACCU-CHEK XX (02:00)
[2018-04-23] MEDS: PANTOPRAZOLE (EC) 40 MG TAB PO ×2 (05:40→17:45)
[2018-04-23 06:02] LABS: ADD MAN DIFF? NO
[2018-04-23 06:13] LABS: BASOPHILS % 0.1 % (0.0-2.0); HEMATOCRIT 34.1 % (37.0-47.0); HEMOGLOBIN 9.9 g/dl (12.0-16.0); LYMPHOCYTES % 11.1 % (15.0-51.0); MEAN CORPUSCULAR HEMOGLOBIN 23.4 pg (29.0-33.0); MEAN CORPUSCULAR VOLUME 80.6 fl (82.0-101.0); MEAN PLATELET VOLUME 10.2 fl (7.4-10.4); MONOCYTE # 0.4 10^3/ul (0.3-0.9); MONOCYTES % 4.2 % (0.0-11.0); NEUTROPHIL # 7.3 10^3/ul (1.6-7.5); NEUTROPHILS % 83.2 % (39.0-77.0); NUCLEATED RED BLOOD CELLS% 0.5 /100WBC (0.0-0.0); PLATELET COUNT 253 10^3/UL (140-415); RED BLOOD COUNT 4.23 10^6/ul (4.20-5.40); RED CELL DISTRIBUTION WIDTH 17.5 % (11.5-14.5)
[2018-04-23 06:13] LABS: WHITE BLOOD COUNT 8.8 10^3/ul (4.8-10.8)
[2018-04-23 06:22] LABS: MAGNESIUM 2.4 mg/dl (1.7-2.5)
[2018-04-23 06:26] LABS: ANION GAP 6 (5-13); BLOOD UREA NITROGEN 31 mg/dl (7-20); C-REACTIVE PROTEIN 0.8 mg/dl (0.0-0.9); CALCIUM 8.7 mg/dl (8.4-10.2); CARBON DIOXIDE 33 mmol/L (21-31); CHLORIDE 105 mmol/L (97-110); CREATININE 0.77 mg/dl (0.44-1.00); Estimated GFR > 60 mL/min (>60); GLUCOSE 301 mg/dl (70-220); POTASSIUM 5.1 mmol/L (3.5-5.1); SODIUM 144 mmol/L (135-144)
[2018-04-23] MEDS: INSULIN ASPART [NOVOLOG] 3 ML PEN SC ×7 (08:00→20:54)
[2018-04-23] MEDS: LINAGLIPTIN 5 MG TABLET PO (08:44)
[2018-04-23] MEDS: INSULIN GLARGINE [LANTus] (100 UNITS/ML) SYG SC (08:45)
[2018-04-23] MEDS: FOLIC ACID 1 MG TAB PO (09:00)
[2018-04-23] MEDS: ENOXAPARIN 30 MG/0.3 ML SYG SC (09:00)
[2018-04-23] MEDS: GABAPENTIN 100 MG CAP PO ×3 (09:00→20:47)
[2018-04-23] MEDS: ASPIRIN 81 MG TAB PO (09:00)
[2018-04-23] MEDS: ASCORBIC ACID 500 MG TAB PO (09:00)
[2018-04-23] MEDS: METHYLPREDNISOLONE 40 MG INJ IV (09:09)
[2018-04-23] MEDS: FUROSEMIDE 40 MG INJ IV (09:12)
[2018-04-23] MEDS: GENTAMICIN 0.1% 15 GM OINT TOP ×2 (09:18→20:48)
[2018-04-23] MEDS: SILVER SULFADIAZINE 1% 25 GM CR TOP ×2 (09:19→20:49)
[2018-04-23] MEDS: BACITRACIN/POLYMYXIN 28.35 GM OINT TOP ×2 (09:19→20:49)
[2018-04-23] MEDS: NYSTATIN 30 GM POWDER BTL TOP ×2 (09:20→20:48)
[2018-04-23] MEDS: CEFTAZIDIME 1GM/50 ML (PMX) 50 ML IVPB ×2 (10:38→20:47)
[2018-04-23] MEDS: ONDANSETRON 4 MG INJ IV (13:21)
[2018-04-23] MEDS: ATORVASTATIN 10 MG TAB PO (20:46)
[2018-04-24] MEDS: ALBUTEROL/IPRATROPIUM (NEB) 3 ML AMP HHN ×3 (01:00→09:00)
[2018-04-24] MEDS: ACCU-CHEK XX (02:18)
[2018-04-24] MEDS: PANTOPRAZOLE (EC) 40 MG TAB PO (05:06)
[2018-04-24 05:41] LABS: ADD MAN DIFF? NO
[2018-04-24 05:43] LABS: WHITE BLOOD COUNT 9.5 10^3/ul (4.8-10.8)
[2018-04-24 05:43] LABS: EOSINOPHILS % 0.3 % (0.0-7.0); HEMATOCRIT 31.7 % (37.0-47.0); HEMOGLOBIN 9.3 g/dl (12.0-16.0); LYMPHOCYTES # 2.4 10^3/ul (0.8-2.9); LYMPHOCYTES % 24.9 % (15.0-51.0); MEAN CORPUSCULAR HEMOGLOBIN 23.8 pg (29.0-33.0); MEAN CORPUSCULAR HGB CONC 29.3 g/dl (32.0-37.0); MEAN CORPUSCULAR VOLUME 81.3 fl (82.0-101.0); MEAN PLATELET VOLUME 10.8 fl (7.4-10.4); MONOCYTE # 0.8 10^3/ul (0.3-0.9); MONOCYTES % 8.7 % (0.0-11.0); NEUTROPHIL # 6.2 10^3/ul (1.6-7.5); NEUTROPHILS % 65.3 % (39.0-77.0); NUCLEATED RED BLOOD CELLS% 0.3 /100WBC (0.0-0.0); PLATELET COUNT 270 10^3/UL (140-415); RED CELL DISTRIBUTION WIDTH 18.5 % (11.5-14.5)
[2018-04-24 06:15] LABS: MAGNESIUM 2.3 mg/dl (1.7-2.5)
[2018-04-24 06:15] LABS: PHOSPHORUS 3.5 mg/dl (2.5-4.9)
[2018-04-24 06:26] LABS: ANION GAP 6 (5-13); BLOOD UREA NITROGEN 31 mg/dl (7-20); CALCIUM 8.5 mg/dl (8.4-10.2); CARBON DIOXIDE 37 mmol/L (21-31); CHLORIDE 102 mmol/L (97-110); CREATININE 0.89 mg/dl (0.44-1.00); Estimated GFR > 60 mL/min (>60); GLUCOSE 207 mg/dl (70-220); POTASSIUM 4.2 mmol/L (3.5-5.1); SODIUM 145 mmol/L (135-144)
[2018-04-24] MEDS: INSULIN ASPART [NOVOLOG] 3 ML PEN SC ×4 (09:09→13:20)
[2018-04-24] MEDS: INSULIN GLARGINE [LANTus] (100 UNITS/ML) SYG SC (09:16)
[2018-04-24] MEDS: ENOXAPARIN 30 MG/0.3 ML SYG SC (09:29)
[2018-04-24] MEDS: ASPIRIN 81 MG TAB PO (09:30)
[2018-04-24] MEDS: LINAGLIPTIN 5 MG TABLET PO (09:30)
[2018-04-24] MEDS: ASCORBIC ACID 500 MG TAB PO (09:30)
[2018-04-24] MEDS: METHYLPREDNISOLONE 40 MG INJ IV (09:30)
[2018-04-24] MEDS: FUROSEMIDE 40 MG INJ IV (09:30)
[2018-04-24] MEDS: GABAPENTIN 100 MG CAP PO (09:30)
[2018-04-24] MEDS: FOLIC ACID 1 MG TAB PO (09:30)
[2018-04-24] MEDS: BACITRACIN/POLYMYXIN 28.35 GM OINT TOP (09:32)
[2018-04-24] MEDS: GENTAMICIN 0.1% 15 GM OINT TOP (09:32)
[2018-04-24] MEDS: NYSTATIN 30 GM POWDER BTL TOP (09:32)
[2018-04-24] MEDS: SILVER SULFADIAZINE 1% 25 GM CR TOP (09:33)
[2018-04-24] MEDS: CEFTAZIDIME 1GM/50 ML (PMX) 50 ML IVPB (11:12)
[2018-04-25] MEDS ORDERED: predniSONE 10 MG TAB PO (09:00)
== END 2018-04-24 14:35 | DRG 602 ==
LOC: 6WM 04-11 12:17 → 2NE 04-23 → 6WM 04-22 16:23 → E/R 15:33 → PP2 14:55
PROC: 02HV33Z Insertion of Infusion Device into Superior Vena Cava, Percutaneous Approach (ICD-10-PCS; principal; 2018-04-10)
DX: L03.115 Cellulitis of right lower limb (principal); J96.00 Acute respiratory failure, unspecified whether with hypoxia or hypercapnia; G93.41 Metabolic encephalopathy; Z68.44 Body mass index [BMI] 60.0-69.9, adult; N39.0 Urinary tract infection, site not specified; E66.2 Morbid (severe) obesity with alveolar hypoventilation; J96.10 Chronic respiratory failure, unspecified whether with hypoxia or hypercapnia; B37.49 Other urogenital candidiasis; R65.10 Systemic inflammatory response syndrome (SIRS) of non-infectious origin without acute organ dysfunction; L03.116 Cellulitis of left lower limb; E66.01 Morbid (severe) obesity due to excess calories; I12.9 Hypertensive chronic kidney disease with stage 1 through stage 4 chronic kidney disease, or unspecified chronic kidney disease; E11.22 Type 2 diabetes mellitus with diabetic chronic kidney disease; N18.9 Chronic kidney disease, unspecified; R14.0 Abdominal distension (gaseous); E11.40 Type 2 diabetes mellitus with diabetic neuropathy, unspecified; B95.8 Unspecified staphylococcus as the cause of diseases classified elsewhere; B96.89 Other specified bacterial agents as the cause of diseases classified elsewhere; F79 Unspecified intellectual disabilities; B95.2 Enterococcus as the cause of diseases classified elsewhere; Z16.21 Resistance to vancomycin; B36.8 Other specified superficial mycoses; M54.5 Low back pain; D50.9 Iron deficiency anemia, unspecified
CPT/HCPCS: 36569; 36600; 71045; 76937; 80048; 80053; 81001; 82140; 82565; 82803; 82962; 83036; 83735; 84100; 84443; 84520; 85025; 86140; 87040; 87070; 93970; 94640; 94660; 94664; 99285-25

== ENCOUNTER 2018-07-23 15:56 | Inpatient (IN) | payer MEDICARE, OTHER ==
[2018-07-23] MEDS: [UNRECOGNIZED DRUG - REMARK] XX (18:30)
[2018-07-23] MEDS ORDERED: GLUCAGON 1 MG INJ IM (18:30)
[2018-07-23] MEDS ORDERED: GLUCOSE GEL 15 GRAM TUBE PO ×2 (18:30)
[2018-07-23] MEDS ORDERED: DEXTROSE 50% 50 ML SYRINGE IV ×2 (18:30)
[2018-07-23] MEDS ORDERED: GLUCOSE GEL 15 GRAM TUBE BUCCAL (18:30)
[2018-07-23] MEDS ORDERED: INSULIN ASPART [NOVOLOG] 3 ML PEN SC (19:00)
[2018-07-23] MEDS: morphine 2 MG INJ IV (19:17)
[2018-07-23] MEDS: ACETAMINOPHEN 325 MG TAB PO (21:19)
[2018-07-23] MEDS: FERROUS SULFATE (EC) 325 MG TAB PO (21:19)
[2018-07-23] MEDS: ATORVASTATIN 10 MG TAB PO (21:19)
[2018-07-23] MEDS: GABAPENTIN 100 MG CAP PO (21:19)
[2018-07-23] MEDS: INSULIN ASPART [NOVOLOG] 3 ML PEN SC (21:30)
[2018-07-24] MEDS: PIPER-TAZO 3.375 GM IV (PMX) 100 ML IVPB ×3 (00:08→13:30)
[2018-07-24] MEDS: ACCU-CHEK XX ×4 (02:00→20:05)
[2018-07-24] MEDS: [UNRECOGNIZED DRUG - REMARK] XX (02:30)
[2018-07-24] MEDS: PANTOPRAZOLE (EC) 40 MG TAB PO (05:33)
[2018-07-24 07:48] LABS: ADD MAN DIFF? NO
[2018-07-24 07:54] LABS: WHITE BLOOD COUNT 6.9 10^3/ul (4.8-10.8)
[2018-07-24 07:54] LABS: BASOPHILS % 0.3 % (0.0-2.0); EOSINOPHILS # 0.3 10^3/ul (0.0-0.5); EOSINOPHILS % 3.8 % (0.0-7.0); HEMATOCRIT 29.2 % (37.0-47.0); HEMOGLOBIN 8.6 g/dl (12.0-16.0); LYMPHOCYTES # 1.4 10^3/ul (0.8-2.9); LYMPHOCYTES % 20.9 % (15.0-51.0); MEAN CORPUSCULAR HGB CONC 29.5 g/dl (32.0-37.0); MEAN CORPUSCULAR VOLUME 81.3 fl (82.0-101.0); MEAN PLATELET VOLUME 10.3 fl (7.4-10.4); MONOCYTE # 0.8 10^3/ul (0.3-0.9); MONOCYTES % 11.7 % (0.0-11.0); NEUTROPHIL # 4.3 10^3/ul (1.6-7.5); NEUTROPHILS % 62.9 % (39.0-77.0); PLATELET COUNT 395 10^3/UL (140-415); RED BLOOD COUNT 3.59 10^6/ul (4.20-5.40); RED CELL DISTRIBUTION WIDTH 15.6 % (11.5-14.5)
[2018-07-24 08:15] LABS: ALANINE AMINOTRANSFERASE 10 IU/L (13-69); ALBUMIN 3.1 g/dl (3.3-4.9); ALBUMIN/GLOBULIN RATIO 0.81; ALKALINE PHOSPHATASE 74 IU/L (42-121); ANION GAP 5 (5-13); ASPARTATE AMINO TRANSFERASE 16 IU/L (15-46); BILIRUBIN,INDIRECT 0.2 mg/dl (0-1.1); BILIRUBIN,TOTAL 0.2 mg/dl (0.2-1.3); BLOOD UREA NITROGEN 19 mg/dl (7-20); C-REACTIVE PROTEIN 7.6 mg/dl (0.0-0.9); CALCIUM 8.8 mg/dl (8.4-10.2); CARBON DIOXIDE 30 mmol/L (21-31); CHLORIDE 103 mmol/L (97-110); CREATININE 0.89 mg/dl (0.44-1.00); Estimated GFR > 60 mL/min (>60); GLUCOSE 230 mg/dl (70-220); POTASSIUM 3.8 mmol/L (3.5-5.1); SODIUM 138 mmol/L (135-144); TOTAL PROTEIN 6.9 g/dl (6.1-8.1)
[2018-07-24 08:20] LABS: INR 1.02; PROTIME 13.5 Sec (11.9-14.9); PT RATIO 1.1
[2018-07-24 08:21] LABS: PARTIAL THROMBOPLASTIN TIME 34.4 Sec (23.0-35.0)
[2018-07-24] MEDS: INSULIN ASPART [NOVOLOG] 3 ML PEN SC ×4 (08:21→20:09)
[2018-07-24] MEDS: INSULIN GLARGINE [LANTus] (100 UNITS/ML) SYG SC (08:22)
[2018-07-24] MEDS: FERROUS SULFATE (EC) 325 MG TAB PO ×3 (08:40→21:00)
[2018-07-24] MEDS: FOLIC ACID 1 MG TAB PO (08:40)
[2018-07-24] MEDS: ASCORBIC ACID 500 MG TAB PO (08:40)
[2018-07-24 08:53] LABS: ERYTHROCYTE SEDIMENTATION RATE 123 mm/Hr (0-30)
[2018-07-24] MEDS: ASPIRIN 81 MG TAB PO (10:16)
[2018-07-24] MEDS: GABAPENTIN 100 MG CAP PO ×2 (10:16→12:13)
[2018-07-24] MEDS: KETOROLAC 15 MG INJ IV ×2 (12:07→20:00)
[2018-07-24] MEDS: LINAGLIPTIN 5 MG TABLET PO (13:00)
[2018-07-24 13:43] LABS: TOTAL IRON BINDING CAPACITY 272 ug/dl (241-421)
[2018-07-24 13:46] LABS: IRON < 10 ug/dl (35-150)
[2018-07-24] MEDS: TERBINAFINE 250 MG TAB PO ×2 (14:30→20:01)
[2018-07-24] MEDS: CLINDAMYCIN 900 MG/D5W (PMX) 50 ML IVPB ×2 (17:07→23:26)
[2018-07-24] MEDS: REPAGLINIDE 1 MG TAB PO (17:35)
[2018-07-24] MEDS: ATORVASTATIN 10 MG TAB PO ×2 (20:01→21:00)
[2018-07-24] MEDS: NYSTATIN 30 GM POWDER BTL TOP (20:02)
[2018-07-25] MEDS: ACCU-CHEK XX ×7 (02:00→20:05)
[2018-07-25] MEDS: KETOROLAC 15 MG INJ IV ×2 (04:01→18:25)
[2018-07-25] MEDS: PANTOPRAZOLE (EC) 40 MG TAB PO (06:00)
[2018-07-25] MEDS: CLINDAMYCIN 900 MG/D5W (PMX) 50 ML IVPB ×3 (06:31→21:28)
[2018-07-25] MEDS: INSULIN ASPART [NOVOLOG] 3 ML PEN SC ×4 (08:21→21:00)
[2018-07-25] MEDS: INSULIN GLARGINE [LANTus] (100 UNITS/ML) SYG SC (08:22)
[2018-07-25] MEDS: ASCORBIC ACID 500 MG TAB PO ×2 (08:22→08:43)
[2018-07-25] MEDS: TERBINAFINE 250 MG TAB PO ×4 (08:22→21:00)
[2018-07-25] MEDS: ASPIRIN 81 MG TAB PO ×2 (08:23→08:42)
[2018-07-25] MEDS: FOLIC ACID 1 MG TAB PO ×2 (08:23→08:43)
[2018-07-25] MEDS: LINAGLIPTIN 5 MG TABLET PO (08:23)
[2018-07-25] MEDS: REPAGLINIDE 1 MG TAB PO ×3 (08:23→17:35)
[2018-07-25] MEDS: FERROUS SULFATE (EC) 325 MG TAB PO ×3 (08:23→21:00)
[2018-07-25] MEDS: NYSTATIN 30 GM POWDER BTL TOP ×2 (09:00→21:00)
[2018-07-25] MEDS: FUROSEMIDE 20 MG INJ IV (12:46)
[2018-07-25] MEDS: SOD FERRIC GLUC COMPLX 125 MG in SOD CHLORIDE 0.9% 100 ML IVPB ×2 (13:01→17:39)
[2018-07-25 14:51] LABS: ADD MAN DIFF? NO
[2018-07-25 14:54] LABS: WHITE BLOOD COUNT 5.8 10^3/ul (4.8-10.8)
[2018-07-25 14:54] LABS: BASOPHILS % 0.3 % (0.0-2.0); EOSINOPHILS # 0.4 10^3/ul (0.0-0.5); EOSINOPHILS % 6.2 % (0.0-7.0); HEMATOCRIT 30.4 % (37.0-47.0); HEMOGLOBIN 8.9 g/dl (12.0-16.0); LYMPHOCYTES # 1.5 10^3/ul (0.8-2.9); LYMPHOCYTES % 25.6 % (15.0-51.0); MEAN CORPUSCULAR HEMOGLOBIN 24.2 pg (29.0-33.0); MEAN CORPUSCULAR HGB CONC 29.3 g/dl (32.0-37.0); MEAN CORPUSCULAR VOLUME 82.6 fl (82.0-101.0); MEAN PLATELET VOLUME 10.3 fl (7.4-10.4); MONOCYTE # 0.6 10^3/ul (0.3-0.9); MONOCYTES % 9.9 % (0.0-11.0); NEUTROPHIL # 3.4 10^3/ul (1.6-7.5); NEUTROPHILS % 57.7 % (39.0-77.0); PLATELET COUNT 402 10^3/UL (140-415); RED BLOOD COUNT 3.68 10^6/ul (4.20-5.40); RED CELL DISTRIBUTION WIDTH 15.6 % (11.5-14.5)
[2018-07-25 15:13] LABS: ANION GAP 7 (5-13); BLOOD UREA NITROGEN 24 mg/dl (7-20); CARBON DIOXIDE 29 mmol/L (21-31); CHLORIDE 104 mmol/L (97-110); CREATININE 0.87 mg/dl (0.44-1.00); Estimated GFR > 60 mL/min (>60); GLUCOSE 75 mg/dl (70-220); POTASSIUM 4.5 mmol/L (3.5-5.1); SODIUM 140 mmol/L (135-144)
[2018-07-25 15:17] LABS: MAGNESIUM 2.2 mg/dl (1.7-2.5)
[2018-07-25 15:17] LABS: PHOSPHORUS 4.7 mg/dl (2.5-4.9)
[2018-07-25] MEDS: ATORVASTATIN 10 MG TAB PO (21:00)
[2018-07-25] MEDS: NYSTATIN 15 GM OINT TOP (21:00)
[2018-07-26] MEDS: ACCU-CHEK XX ×7 (02:00→20:05)
[2018-07-26] MEDS: morphine 2 MG INJ IV ×2 (04:04→19:39)
[2018-07-26] MEDS: KETOROLAC 15 MG INJ IV (05:02)
[2018-07-26] MEDS: CLINDAMYCIN 900 MG/D5W (PMX) 50 ML IVPB ×3 (05:03→22:04)
[2018-07-26] MEDS: PANTOPRAZOLE (EC) 40 MG TAB PO (06:00)
[2018-07-26] MEDS: INSULIN ASPART [NOVOLOG] 3 ML PEN SC ×4 (08:00→21:00)
[2018-07-26] MEDS: FUROSEMIDE 20 MG INJ IV (08:17)
[2018-07-26] MEDS: REPAGLINIDE 1 MG TAB PO ×3 (08:17→17:36)
[2018-07-26] MEDS: INSULIN GLARGINE [LANTus] (100 UNITS/ML) SYG SC (08:20)
[2018-07-26] MEDS: LINAGLIPTIN 5 MG TABLET PO (08:21)
[2018-07-26] MEDS: FOLIC ACID 1 MG TAB PO (08:21)
[2018-07-26] MEDS: FERROUS SULFATE (EC) 325 MG TAB PO ×2 (08:21→21:57)
[2018-07-26] MEDS: ASCORBIC ACID 500 MG TAB PO (08:21)
[2018-07-26] MEDS: TERBINAFINE 250 MG TAB PO ×2 (08:22→21:59)
[2018-07-26] MEDS: ASPIRIN 81 MG TAB PO (08:22)
[2018-07-26] MEDS: NYSTATIN 15 GM OINT TOP ×3 (08:22→22:02)
[2018-07-26] MEDS: NYSTATIN 30 GM POWDER BTL TOP ×2 (08:23→22:02)
[2018-07-26] MEDS: SOD FERRIC GLUC COMPLX 125 MG in SOD CHLORIDE 0.9% 100 ML IVPB ×2 (12:45→17:36)
[2018-07-26] MEDS: ATORVASTATIN 10 MG TAB PO (21:57)
[2018-07-27] MEDS: ACCU-CHEK XX ×7 (02:00→20:05)
[2018-07-27] MEDS: morphine 2 MG INJ IV ×4 (03:16→23:51)
[2018-07-27] MEDS: PANTOPRAZOLE (EC) 40 MG TAB PO (05:51)
[2018-07-27] MEDS: CLINDAMYCIN 900 MG/D5W (PMX) 50 ML IVPB ×3 (05:51→21:37)
[2018-07-27] MEDS: ACETAMINOPHEN 325 MG TAB PO (06:35)
[2018-07-27] MEDS: INSULIN ASPART [NOVOLOG] 3 ML PEN SC ×4 (08:00→21:00)
[2018-07-27] MEDS: LINAGLIPTIN 5 MG TABLET PO (08:22)
[2018-07-27] MEDS: REPAGLINIDE 1 MG TAB PO ×3 (08:22→17:37)
[2018-07-27] MEDS: INSULIN GLARGINE [LANTus] (100 UNITS/ML) SYG SC (08:28)
[2018-07-27] MEDS: NYSTATIN 30 GM POWDER BTL TOP ×2 (10:37→20:29)
[2018-07-27] MEDS: NYSTATIN 15 GM OINT TOP ×3 (10:37→20:29)
[2018-07-27] MEDS: ASCORBIC ACID 500 MG TAB PO (10:38)
[2018-07-27] MEDS: ASPIRIN 81 MG TAB PO (10:38)
[2018-07-27] MEDS: FOLIC ACID 1 MG TAB PO (10:38)
[2018-07-27] MEDS: TERBINAFINE 250 MG TAB PO ×2 (10:38→20:27)
[2018-07-27] MEDS: FERROUS SULFATE (EC) 325 MG TAB PO ×2 (10:38→20:27)
[2018-07-27] MEDS: FUROSEMIDE 20 MG INJ IV (10:39)
[2018-07-27] MEDS: SOD FERRIC GLUC COMPLX 125 MG in SOD CHLORIDE 0.9% 100 ML IVPB (13:12)
[2018-07-27] MEDS ORDERED: ENOXAPARIN 40 MG/0.4 ML SYG SC (16:00)
[2018-07-27] MEDS: ATORVASTATIN 10 MG TAB PO (20:27)
[2018-07-28] MEDS: ACCU-CHEK XX ×8 (02:00→23:24)
[2018-07-28] MEDS: ACETAMINOPHEN 325 MG TAB PO (04:27)
[2018-07-28] MEDS: CLINDAMYCIN 900 MG/D5W (PMX) 50 ML IVPB ×3 (05:45→21:47)
[2018-07-28] MEDS: PANTOPRAZOLE (EC) 40 MG TAB PO (05:45)
[2018-07-28 06:54] LABS: ADD MAN DIFF? NO
[2018-07-28] MEDS: morphine 2 MG INJ IV ×3 (07:00→18:52)
[2018-07-28 07:07] LABS: WHITE BLOOD COUNT 6.1 10^3/ul (4.8-10.8)
[2018-07-28 07:07] LABS: BASOPHILS % 0.3 % (0.0-2.0); EOSINOPHILS # 0.5 10^3/ul (0.0-0.5); EOSINOPHILS % 7.4 % (0.0-7.0); HEMATOCRIT 31.3 % (37.0-47.0); HEMOGLOBIN 9.1 g/dl (12.0-16.0); LYMPHOCYTES # 1.6 10^3/ul (0.8-2.9); LYMPHOCYTES % 25.8 % (15.0-51.0); MEAN CORPUSCULAR HEMOGLOBIN 24.2 pg (29.0-33.0); MEAN CORPUSCULAR HGB CONC 29.1 g/dl (32.0-37.0); MEAN CORPUSCULAR VOLUME 83.2 fl (82.0-101.0); MEAN PLATELET VOLUME 10.2 fl (7.4-10.4); MONOCYTE # 0.4 10^3/ul (0.3-0.9); NEUTROPHIL # 3.6 10^3/ul (1.6-7.5); NEUTROPHILS % 59.2 % (39.0-77.0); PLATELET COUNT 407 10^3/UL (140-415); RED BLOOD COUNT 3.76 10^6/ul (4.20-5.40); RED CELL DISTRIBUTION WIDTH 15.9 % (11.5-14.5)
[2018-07-28 07:40] LABS: ANION GAP 7 (5-13); BLOOD UREA NITROGEN 18 mg/dl (7-20); CALCIUM 8.8 mg/dl (8.4-10.2); CARBON DIOXIDE 28 mmol/L (21-31); CHLORIDE 106 mmol/L (97-110); CREATININE 0.88 mg/dl (0.44-1.00); Estimated GFR > 60 mL/min (>60); GLUCOSE 143 mg/dl (70-220); POTASSIUM 4.2 mmol/L (3.5-5.1); SODIUM 141 mmol/L (135-144)
[2018-07-28] MEDS: INSULIN ASPART [NOVOLOG] 3 ML PEN SC ×4 (08:00→21:00)
[2018-07-28] MEDS: INSULIN GLARGINE [LANTus] (100 UNITS/ML) SYG SC (11:04)
[2018-07-28] MEDS: REPAGLINIDE 1 MG TAB PO ×3 (11:30→18:52)
[2018-07-28] MEDS: TERBINAFINE 250 MG TAB PO ×2 (12:25→21:08)
[2018-07-28] MEDS: LINAGLIPTIN 5 MG TABLET PO (12:26)
[2018-07-28] MEDS: FOLIC ACID 1 MG TAB PO (12:26)
[2018-07-28] MEDS: FERROUS SULFATE (EC) 325 MG TAB PO ×2 (12:26→21:09)
[2018-07-28] MEDS: ASPIRIN 81 MG TAB PO (12:26)
[2018-07-28] MEDS: ASCORBIC ACID 500 MG TAB PO (12:26)
[2018-07-28] MEDS: FUROSEMIDE 20 MG INJ IV (12:33)
[2018-07-28] MEDS: NYSTATIN 30 GM POWDER BTL TOP ×2 (12:46→21:09)
[2018-07-28] MEDS: NYSTATIN 15 GM OINT TOP ×3 (12:46→21:09)
[2018-07-28] MEDS: ATORVASTATIN 10 MG TAB PO (21:09)
[2018-07-29] MEDS: morphine 2 MG INJ IV ×3 (03:26→16:31)
[2018-07-29] MEDS: PANTOPRAZOLE (EC) 40 MG TAB PO (05:23)
[2018-07-29] MEDS: CLINDAMYCIN 900 MG/D5W (PMX) 50 ML IVPB (05:23)
[2018-07-29] MEDS: ACCU-CHEK XX ×6 (07:30→20:05)
[2018-07-29] MEDS: INSULIN ASPART [NOVOLOG] 3 ML PEN SC ×4 (08:00→21:00)
[2018-07-29] MEDS: ASPIRIN 81 MG TAB PO (08:03)
[2018-07-29] MEDS: FOLIC ACID 1 MG TAB PO (08:03)
[2018-07-29] MEDS: ASCORBIC ACID 500 MG TAB PO (08:03)
[2018-07-29] MEDS: FERROUS SULFATE (EC) 325 MG TAB PO ×2 (08:03→21:31)
[2018-07-29] MEDS: LINAGLIPTIN 5 MG TABLET PO (08:04)
[2018-07-29] MEDS: REPAGLINIDE 1 MG TAB PO ×3 (08:04→17:35)
[2018-07-29] MEDS: TERBINAFINE 250 MG TAB PO ×2 (08:04→21:31)
[2018-07-29] MEDS: FUROSEMIDE 20 MG INJ IV (08:14)
[2018-07-29] MEDS: ACETAMINOPHEN 325 MG TAB PO (08:14)
[2018-07-29] MEDS: INSULIN GLARGINE [LANTus] (100 UNITS/ML) SYG SC (08:16)
[2018-07-29] MEDS: NYSTATIN 30 GM POWDER BTL TOP ×2 (10:01→21:30)
[2018-07-29] MEDS: NYSTATIN 15 GM OINT TOP ×3 (10:01→21:30)
[2018-07-29] MEDS: CLINDAMYCIN 300 MG CAP PO (18:05)
[2018-07-29] MEDS: L ACIDOPHIL/B LACTIS/B LONGUM CAPSULE PO (21:31)
[2018-07-29] MEDS: IBUPROFEN 400 MG TAB PO (21:31)
[2018-07-29] MEDS: ATORVASTATIN 10 MG TAB PO (21:31)
[2018-07-29] MEDS: HYDROCODONE/APAP (7.5/325) TAB PO (22:56)
[2018-07-30] MEDS: CLINDAMYCIN 300 MG CAP PO ×4 (01:17→18:19)
[2018-07-30] MEDS: ACCU-CHEK XX ×7 (02:00→20:00)
[2018-07-30] MEDS: PANTOPRAZOLE (EC) 40 MG TAB PO (06:49)
[2018-07-30] MEDS: INSULIN ASPART [NOVOLOG] 3 ML PEN SC ×4 (07:47→21:00)
[2018-07-30] MEDS: L ACIDOPHIL/B LACTIS/B LONGUM CAPSULE PO ×2 (08:22→21:03)
[2018-07-30] MEDS: REPAGLINIDE 1 MG TAB PO ×3 (08:22→17:51)
[2018-07-30] MEDS: NYSTATIN 15 GM OINT TOP ×3 (08:22→21:01)
[2018-07-30] MEDS: NYSTATIN 30 GM POWDER BTL TOP ×2 (08:22→21:02)
[2018-07-30] MEDS: FERROUS SULFATE (EC) 325 MG TAB PO ×2 (08:22→21:03)
[2018-07-30] MEDS: ASCORBIC ACID 500 MG TAB PO (08:22)
[2018-07-30] MEDS: TERBINAFINE 250 MG TAB PO ×2 (08:22→21:03)
[2018-07-30] MEDS: LINAGLIPTIN 5 MG TABLET PO (08:23)
[2018-07-30] MEDS: FOLIC ACID 1 MG TAB PO (08:23)
[2018-07-30] MEDS: ASPIRIN 81 MG TAB PO (08:23)
[2018-07-30] MEDS: FUROSEMIDE 20 MG INJ IV (08:24)
[2018-07-30] MEDS: INSULIN GLARGINE [LANTus] (100 UNITS/ML) SYG SC (08:27)
[2018-07-30] MEDS: HYDROCODONE/APAP (7.5/325) TAB PO (12:53)
[2018-07-30] MEDS: SOD FERRIC GLUC COMPLX 125 MG in SOD CHLORIDE 0.9% 100 ML IVPB (15:27)
[2018-07-30] MEDS: ATORVASTATIN 10 MG TAB PO (21:03)
[2018-07-31] MEDS: CLINDAMYCIN 300 MG CAP PO ×3 (00:06→12:56)
[2018-07-31] MEDS: ACCU-CHEK XX ×5 (02:00→14:00)
[2018-07-31] MEDS: HYDROCODONE/APAP (7.5/325) TAB PO (04:59)
[2018-07-31] MEDS: PANTOPRAZOLE (EC) 40 MG TAB PO (06:35)
[2018-07-31 06:55] LABS: ADD MAN DIFF? NO
[2018-07-31 07:04] LABS: BASOPHILS % 0.5 % (0.0-2.0); EOSINOPHILS # 0.3 10^3/ul (0.0-0.5); EOSINOPHILS % 5.2 % (0.0-7.0); HEMATOCRIT 33.2 % (37.0-47.0); HEMOGLOBIN 9.9 g/dl (12.0-16.0); LYMPHOCYTES # 1.7 10^3/ul (0.8-2.9); LYMPHOCYTES % 25.8 % (15.0-51.0); MEAN CORPUSCULAR HEMOGLOBIN 24.6 pg (29.0-33.0); MEAN CORPUSCULAR HGB CONC 29.8 g/dl (32.0-37.0); MEAN CORPUSCULAR VOLUME 82.4 fl (82.0-101.0); MEAN PLATELET VOLUME 10.6 fl (7.4-10.4); MONOCYTE # 0.4 10^3/ul (0.3-0.9); MONOCYTES % 5.9 % (0.0-11.0); NEUTROPHIL # 4.1 10^3/ul (1.6-7.5); NEUTROPHILS % 62.1 % (39.0-77.0); PLATELET COUNT 390 10^3/UL (140-415); RED BLOOD COUNT 4.03 10^6/ul (4.20-5.40); RED CELL DISTRIBUTION WIDTH 16.3 % (11.5-14.5)
[2018-07-31 07:04] LABS: WHITE BLOOD COUNT 6.6 10^3/ul (4.8-10.8)
[2018-07-31 07:26] LABS: ALANINE AMINOTRANSFERASE 22 IU/L (13-69); ALBUMIN 3.5 g/dl (3.3-4.9); ALBUMIN/GLOBULIN RATIO 0.87; ALKALINE PHOSPHATASE 159 IU/L (42-121); ANION GAP 8 (5-13); ASPARTATE AMINO TRANSFERASE 28 IU/L (15-46); BILIRUBIN,INDIRECT 0.1 mg/dl (0-1.1); BILIRUBIN,TOTAL 0.1 mg/dl (0.2-1.3); BLOOD UREA NITROGEN 14 mg/dl (7-20); CALCIUM 8.9 mg/dl (8.4-10.2); CARBON DIOXIDE 27 mmol/L (21-31); CHLORIDE 103 mmol/L (97-110); CREATININE 0.79 mg/dl (0.44-1.00); Estimated GFR > 60 mL/min (>60); GLUCOSE 72 mg/dl (70-220); POTASSIUM 4.4 mmol/L (3.5-5.1); SODIUM 138 mmol/L (135-144); TOTAL PROTEIN 7.5 g/dl (6.1-8.1)
[2018-07-31] MEDS: INSULIN ASPART [NOVOLOG] 3 ML PEN SC ×2 (08:00→12:00)
[2018-07-31] MEDS: TERBINAFINE 250 MG TAB PO (08:19)
[2018-07-31] MEDS: REPAGLINIDE 1 MG TAB PO ×2 (08:19→12:56)
[2018-07-31] MEDS: ASCORBIC ACID 500 MG TAB PO (08:19)
[2018-07-31] MEDS: L ACIDOPHIL/B LACTIS/B LONGUM CAPSULE PO (08:19)
[2018-07-31] MEDS: FOLIC ACID 1 MG TAB PO (08:19)
[2018-07-31] MEDS: ASPIRIN 81 MG TAB PO (08:20)
[2018-07-31] MEDS: LINAGLIPTIN 5 MG TABLET PO (08:20)
[2018-07-31] MEDS: FERROUS SULFATE (EC) 325 MG TAB PO (08:20)
[2018-07-31] MEDS: NYSTATIN 30 GM POWDER BTL TOP (08:26)
[2018-07-31] MEDS: IBUPROFEN 400 MG TAB PO (08:26)
[2018-07-31] MEDS: FUROSEMIDE 20 MG INJ IV (08:26)
[2018-07-31] MEDS: NYSTATIN 15 GM OINT TOP ×2 (08:27→12:56)
[2018-07-31 08:55] LABS: ERYTHROCYTE SEDIMENTATION RATE 102 mm/Hr (0-30)
[2018-07-31] MEDS: INSULIN GLARGINE [LANTus] (100 UNITS/ML) SYG SC (09:34)
== END 2018-07-31 17:04 | disposition home or self-care (01) | DRG 603 ==
LOC: 6WM 07-29 20:38 → PP2 15:56
PROVIDERS: Internal Medicine
DX: L03.116 Cellulitis of left lower limb (principal); Z68.44 Body mass index [BMI] 60.0-69.9, adult; L03.115 Cellulitis of right lower limb; E11.65 Type 2 diabetes mellitus with hyperglycemia; E66.01 Morbid (severe) obesity due to excess calories; I10 Essential (primary) hypertension; B35.1 Tinea unguium; H54.7 Unspecified visual loss; D50.0 Iron deficiency anemia secondary to blood loss (chronic); F79 Unspecified intellectual disabilities; Z79.4 Long term (current) use of insulin; E11.3413 Type 2 diabetes mellitus with severe nonproliferative diabetic retinopathy with macular edema, bilateral
CPT/HCPCS: 71045; 80048; 80053; 82728; 82962; 83036; 83540; 83735; 84100; 85025; 85610; 85651; 85730; 86140; 87040-91; 87081

== ENCOUNTER 2018-12-10 11:29 | Inpatient (IN) | payer MEDICARE, OTHER ==
[2018-12-10] MEDS: HYDROmorphONE 1 MG/ML SYG IV (12:28)
[2018-12-10] MEDS: ONDANSETRON 4 MG INJ IV ×2 (12:28→17:14)
[2018-12-10] MEDS: ERTAPENEM SODIUM 1 GM in SOD CHLORIDE 0.9% 100 ML IVPB (12:39)
[2018-12-10 12:44] LABS: ADD MAN DIFF? NO
[2018-12-10 12:57] LABS: BASOPHILS % 0.4 % (0.0-2.0); EOSINOPHILS # 0.4 10^3/ul (0.0-0.5); EOSINOPHILS % 4.7 % (0.0-7.0); HEMATOCRIT 34.1 % (37.0-47.0); HEMOGLOBIN 10.3 g/dl (12.0-16.0); LYMPHOCYTES # 1.2 10^3/ul (0.8-2.9); LYMPHOCYTES % 14.6 % (15.0-51.0); MEAN CORPUSCULAR HEMOGLOBIN 25.6 pg (29.0-33.0); MEAN CORPUSCULAR HGB CONC 30.2 g/dl (32.0-37.0); MEAN CORPUSCULAR VOLUME 84.8 fl (82.0-101.0); MEAN PLATELET VOLUME 10.2 fl (7.4-10.4); MONOCYTE # 0.7 10^3/ul (0.3-0.9); MONOCYTES % 7.9 % (0.0-11.0); PLATELET COUNT 348 10^3/UL (140-415); RED BLOOD COUNT 4.02 10^6/ul (4.20-5.40); RED CELL DISTRIBUTION WIDTH 15.2 % (11.5-14.5)
[2018-12-10 12:57] LABS: WHITE BLOOD COUNT 8.4 10^3/ul (4.8-10.8)
[2018-12-10 13:18] LABS: ALANINE AMINOTRANSFERASE 18 IU/L (13-69); ALBUMIN 3.2 g/dl (3.3-4.9); ALBUMIN/GLOBULIN RATIO 0.68; ALKALINE PHOSPHATASE 119 IU/L (42-121); ANION GAP 8 (5-13); ASPARTATE AMINO TRANSFERASE 21 IU/L (15-46); BILIRUBIN,INDIRECT 0.3 mg/dl (0-1.1); BILIRUBIN,TOTAL 0.3 mg/dl (0.2-1.3); BLOOD UREA NITROGEN 29 mg/dl (7-20); CALCIUM 8.9 mg/dl (8.4-10.2); CARBON DIOXIDE 29 mmol/L (21-31); CHLORIDE 100 mmol/L (97-110); CREATININE 0.99 mg/dl (0.44-1.00); Estimated GFR 58 mL/min (>60); GLUCOSE 275 mg/dl (70-220); SODIUM 137 mmol/L (135-144); TOTAL PROTEIN 7.9 g/dl (6.1-8.1)
[2018-12-10] MEDS ORDERED: ACETAMINOPHEN 325 MG TAB PO ×2 (15:00→16:00)
[2018-12-10] MEDS ORDERED: NACL 0.9% 3 ML SYG IV (16:00)
[2018-12-10] MEDS ORDERED: VANCOMYCIN IV PER PHARMACY XX (16:00)
[2018-12-10] MEDS ORDERED: morphine 2 MG INJ (17:03)
[2018-12-10] MEDS: morphine 2 MG INJ IV ×2 (17:14→21:38)
[2018-12-10] MEDS: INSULIN ASPART [NOVOLOG] 3 ML PEN SC ×2 (17:57→21:16)
[2018-12-10] MEDS ORDERED: PIPER-TAZO 3.375 GM IV (PMX) 100 ML IVPB (18:00)
[2018-12-10] MEDS: MEROPENEM 1 GM/50ML(PMX) 50 ML IVPB (18:18)
[2018-12-10] MEDS: SOD CHLORIDE 0.9% 1,000 ML IV (21:03)
[2018-12-10] MEDS: FUROSEMIDE 40 MG TAB PO (21:14)
[2018-12-10] MEDS: ATORVASTATIN 10 MG TAB PO (21:14)
[2018-12-10] MEDS: GABAPENTIN 300 MG CAP PO (21:14)
[2018-12-10] MEDS: HEPARIN 5,000 UNIT/1 ML VIAL SC (21:15)
[2018-12-10] MEDS ORDERED: PENDING SANTYL ORDER FOR WOUND CARE XX (23:30)
[2018-12-10] MEDS: LATANOPROST 0.005% 2.5 ML OPH BOTH EYES (23:34)
[2018-12-10] MEDS: HYDROCODONE/APAP (5/325) TAB PO (23:42)
[2018-12-10] MEDS ORDERED: DEXTROSE 50% 50 ML SYRINGE IV ×2 (23:45)
[2018-12-10] MEDS ORDERED: GLUCOSE GEL 15 GRAM TUBE BUCCAL (23:45)
[2018-12-10] MEDS ORDERED: GLUCAGON 1 MG INJ IM (23:45)
[2018-12-10] MEDS ORDERED: GLUCOSE GEL 15 GRAM TUBE PO ×2 (23:45)
[2018-12-11] MEDS: MEROPENEM 1 GM/50ML(PMX) 50 ML IVPB ×3 (01:59→18:01)
[2018-12-11] MEDS: ACCU-CHEK XX (02:00)
[2018-12-11 06:02] LABS: ADD MAN DIFF? NO
[2018-12-11 06:05] LABS: WHITE BLOOD COUNT 6.2 10^3/ul (4.8-10.8)
[2018-12-11 06:05] LABS: BASOPHILS % 0.3 % (0.0-2.0); EOSINOPHILS # 0.3 10^3/ul (0.0-0.5); EOSINOPHILS % 4.9 % (0.0-7.0); HEMATOCRIT 34.3 % (37.0-47.0); LYMPHOCYTES # 1.1 10^3/ul (0.8-2.9); MEAN CORPUSCULAR HEMOGLOBIN 25.8 pg (29.0-33.0); MEAN CORPUSCULAR HGB CONC 29.2 g/dl (32.0-37.0); MEAN CORPUSCULAR VOLUME 88.4 fl (82.0-101.0); MEAN PLATELET VOLUME 9.7 fl (7.4-10.4); MONOCYTE # 0.5 10^3/ul (0.3-0.9); MONOCYTES % 8.4 % (0.0-11.0); NEUTROPHIL # 4.3 10^3/ul (1.6-7.5); NEUTROPHILS % 69.2 % (39.0-77.0); PLATELET COUNT 315 10^3/UL (140-415); RED BLOOD COUNT 3.88 10^6/ul (4.20-5.40); RED CELL DISTRIBUTION WIDTH 15.3 % (11.5-14.5)
[2018-12-11 06:29] LABS: ANION GAP 6 (5-13); BLOOD UREA NITROGEN 23 mg/dl (7-20); CALCIUM 8.7 mg/dl (8.4-10.2); CARBON DIOXIDE 30 mmol/L (21-31); CHLORIDE 104 mmol/L (97-110); CREATININE 0.98 mg/dl (0.44-1.00); Estimated GFR 59 mL/min (>60); GLUCOSE 196 mg/dl (70-220); MAGNESIUM 2.1 mg/dl (1.7-2.5); POTASSIUM 4.1 mmol/L (3.5-5.1); SODIUM 140 mmol/L (135-144)
[2018-12-11] MEDS: morphine 2 MG INJ IV ×2 (06:47→23:29)
[2018-12-11 06:58] LABS: HEMOGLOBIN A1C 8.5 % (0-5.9)
[2018-12-11] MEDS: SOD CHLORIDE 0.9% 1,000 ML IV ×2 (07:56→16:49)
[2018-12-11] MEDS: INSULIN ASPART [NOVOLOG] 3 ML PEN SC ×4 (08:00→21:18)
[2018-12-11] MEDS: FOLIC ACID 1 MG TAB PO ×2 (09:00→14:42)
[2018-12-11] MEDS: ASPIRIN 81 MG TAB PO ×2 (09:00→14:42)
[2018-12-11] MEDS: FERROUS SULFATE (EC) 325 MG TAB PO ×2 (09:00→14:43)
[2018-12-11] MEDS: HEPARIN 5,000 UNIT/1 ML VIAL SC ×3 (09:00→21:24)
[2018-12-11] MEDS: FAMOTIDINE 20 MG TAB PO ×2 (09:00→14:43)
[2018-12-11] MEDS: GABAPENTIN 300 MG CAP PO ×4 (09:00→21:16)
[2018-12-11] MEDS: ASCORBIC ACID 500 MG TAB PO ×2 (09:00→14:43)
[2018-12-11] MEDS: FUROSEMIDE 40 MG TAB PO ×3 (09:00→21:16)
[2018-12-11] MEDS: ZINC SULFATE 220 MG CAP PO ×2 (09:00→14:42)
[2018-12-11] MEDS: POLYETHYLENE GLYCOL 17 GM PACKET PO ×2 (09:00→15:15)
[2018-12-11] MEDS: ATORVASTATIN 10 MG TAB PO (21:16)
[2018-12-11] MEDS: LATANOPROST 0.005% 2.5 ML OPH BOTH EYES (21:16)
[2018-12-11] MEDS: INSULIN GLARGINE [LANTus] (100 UNITS/ML) SYG SC (21:18)
[2018-12-12] MEDS: MEROPENEM 1 GM/50ML(PMX) 50 ML IVPB ×3 (01:59→17:46)
[2018-12-12] MEDS: ACCU-CHEK XX (02:00)
[2018-12-12] MEDS: morphine 2 MG INJ IV ×2 (05:13→10:24)
[2018-12-12] MEDS: INSULIN ASPART [NOVOLOG] 3 ML PEN SC ×5 (08:23→21:23)
[2018-12-12] MEDS: HEPARIN 5,000 UNIT/1 ML VIAL SC ×2 (08:24→21:08)
[2018-12-12] MEDS: FAMOTIDINE 20 MG TAB PO (08:25)
[2018-12-12] MEDS: ASCORBIC ACID 500 MG TAB PO (08:25)
[2018-12-12] MEDS: GABAPENTIN 300 MG CAP PO ×3 (08:27→21:08)
[2018-12-12] MEDS: ASPIRIN 81 MG TAB PO (08:27)
[2018-12-12] MEDS: FUROSEMIDE 40 MG TAB PO ×2 (08:28→21:08)
[2018-12-12] MEDS: FERROUS SULFATE (EC) 325 MG TAB PO (08:29)
[2018-12-12] MEDS: FOLIC ACID 1 MG TAB PO (08:29)
[2018-12-12] MEDS: ZINC SULFATE 220 MG CAP PO (08:29)
[2018-12-12] MEDS: POLYETHYLENE GLYCOL 17 GM PACKET PO (08:29)
[2018-12-12] MEDS: SOD CHLORIDE 0.9% 1,000 ML IV (11:58)
[2018-12-12] MEDS: NYSTATIN 30 GM POWDER BTL TOP ×3 (17:46→21:07)
[2018-12-12] MEDS: DIPHENHYDRAMINE 1%/ZINC 28.3 GM CR TOP ×2 (17:46→23:53)
[2018-12-12] MEDS: INSULIN GLARGINE [LANTus] (100 UNITS/ML) SYG SC (20:19)
[2018-12-12] MEDS: ATORVASTATIN 10 MG TAB PO (21:07)
[2018-12-12] MEDS: ZYVOX 600 MG TAB PO (21:11)
[2018-12-12] MEDS: LATANOPROST 0.005% 2.5 ML OPH BOTH EYES (21:12)
[2018-12-13] MEDS: ACCU-CHEK XX (02:00)
[2018-12-13] MEDS: MEROPENEM 1 GM/50ML(PMX) 50 ML IVPB ×3 (02:08→17:33)
[2018-12-13] MEDS: morphine 2 MG INJ IV ×2 (03:10→22:13)
[2018-12-13] MEDS: DIPHENHYDRAMINE 1%/ZINC 28.3 GM CR TOP ×4 (06:11→23:36)
[2018-12-13 07:17] LABS: ADD MAN DIFF? NO
[2018-12-13 07:21] LABS: WHITE BLOOD COUNT 5.9 10^3/ul (4.8-10.8)
[2018-12-13 07:21] LABS: BASOPHILS % 0.5 % (0.0-2.0); EOSINOPHILS # 0.4 10^3/ul (0.0-0.5); EOSINOPHILS % 6.6 % (0.0-7.0); HEMATOCRIT 34.5 % (37.0-47.0); HEMOGLOBIN 10.2 g/dl (12.0-16.0); LYMPHOCYTES # 1.7 10^3/ul (0.8-2.9); LYMPHOCYTES % 28.7 % (15.0-51.0); MEAN CORPUSCULAR HEMOGLOBIN 25.7 pg (29.0-33.0); MEAN CORPUSCULAR HGB CONC 29.6 g/dl (32.0-37.0); MEAN CORPUSCULAR VOLUME 86.9 fl (82.0-101.0); MEAN PLATELET VOLUME 10.5 fl (7.4-10.4); MONOCYTE # 0.5 10^3/ul (0.3-0.9); MONOCYTES % 8.3 % (0.0-11.0); NEUTROPHIL # 3.3 10^3/ul (1.6-7.5); NEUTROPHILS % 55.7 % (39.0-77.0); PLATELET COUNT 348 10^3/UL (140-415); RED BLOOD COUNT 3.97 10^6/ul (4.20-5.40); RED CELL DISTRIBUTION WIDTH 15.2 % (11.5-14.5)
[2018-12-13 07:46] LABS: ANION GAP 4 (5-13); BLOOD UREA NITROGEN 24 mg/dl (7-20); CALCIUM 8.9 mg/dl (8.4-10.2); CARBON DIOXIDE 35 mmol/L (21-31); CHLORIDE 98 mmol/L (97-110); CREATININE 0.96 mg/dl (0.44-1.00); Estimated GFR > 60 mL/min (>60); GLUCOSE 207 mg/dl (70-220); POTASSIUM 4.1 mmol/L (3.5-5.1); SODIUM 137 mmol/L (135-144)
[2018-12-13] MEDS: INSULIN ASPART [NOVOLOG] 3 ML PEN SC ×9 (08:08→22:02)
[2018-12-13] MEDS: HEPARIN 5,000 UNIT/1 ML VIAL SC ×2 (09:00→22:00)
[2018-12-13] MEDS: NYSTATIN 30 GM POWDER BTL TOP ×4 (09:00→22:03)
[2018-12-13] MEDS: ASPIRIN 81 MG TAB PO (09:10)
[2018-12-13] MEDS: FERROUS SULFATE (EC) 325 MG TAB PO (09:10)
[2018-12-13] MEDS: POLYETHYLENE GLYCOL 17 GM PACKET PO (09:10)
[2018-12-13] MEDS: ZINC SULFATE 220 MG CAP PO (09:11)
[2018-12-13] MEDS: FOLIC ACID 1 MG TAB PO (09:11)
[2018-12-13] MEDS: FUROSEMIDE 40 MG TAB PO ×2 (09:11→21:52)
[2018-12-13] MEDS: ZYVOX 600 MG TAB PO ×2 (09:11→21:51)
[2018-12-13] MEDS: GABAPENTIN 300 MG CAP PO ×3 (09:11→21:52)
[2018-12-13] MEDS: ASCORBIC ACID 500 MG TAB PO (09:11)
[2018-12-13] MEDS: FAMOTIDINE 20 MG TAB PO (09:12)
[2018-12-13] MEDS: LINAGLIPTIN 5 MG TABLET PO (13:00)
[2018-12-13] MEDS: LATANOPROST 0.005% 2.5 ML OPH BOTH EYES (21:00)
[2018-12-13] MEDS: ATORVASTATIN 10 MG TAB PO (21:51)
[2018-12-13] MEDS: INSULIN GLARGINE [LANTus] (100 UNITS/ML) SYG SC (22:00)
[2018-12-14] MEDS: ACCU-CHEK XX (01:32)
[2018-12-14] MEDS: MEROPENEM 1 GM/50ML(PMX) 50 ML IVPB ×3 (01:41→17:06)
[2018-12-14] MEDS: morphine 2 MG INJ IV ×3 (04:18→20:46)
[2018-12-14] MEDS: DIPHENHYDRAMINE 1%/ZINC 28.3 GM CR TOP ×3 (05:54→17:09)
[2018-12-14 06:07] LABS: ADD MAN DIFF? NO
[2018-12-14 06:13] LABS: WHITE BLOOD COUNT 6.1 10^3/ul (4.8-10.8)
[2018-12-14 06:13] LABS: BASOPHILS % 0.3 % (0.0-2.0); EOSINOPHILS # 0.4 10^3/ul (0.0-0.5); EOSINOPHILS % 7.2 % (0.0-7.0); HEMATOCRIT 36.2 % (37.0-47.0); HEMOGLOBIN 10.7 g/dl (12.0-16.0); LYMPHOCYTES % 33.5 % (15.0-51.0); MEAN CORPUSCULAR HEMOGLOBIN 25.5 pg (29.0-33.0); MEAN CORPUSCULAR HGB CONC 29.6 g/dl (32.0-37.0); MEAN CORPUSCULAR VOLUME 86.4 fl (82.0-101.0); MEAN PLATELET VOLUME 10.7 fl (7.4-10.4); MONOCYTE # 0.5 10^3/ul (0.3-0.9); NEUTROPHIL # 3.1 10^3/ul (1.6-7.5); NEUTROPHILS % 50.8 % (39.0-77.0); PLATELET COUNT 412 10^3/UL (140-415); RED BLOOD COUNT 4.19 10^6/ul (4.20-5.40); RED CELL DISTRIBUTION WIDTH 15.1 % (11.5-14.5)
[2018-12-14 06:56] LABS: IRON 41 ug/dl (35-150)
[2018-12-14 07:04] LABS: ANION GAP 4 (5-13); BLOOD UREA NITROGEN 23 mg/dl (7-20); CARBON DIOXIDE 35 mmol/L (21-31); CHLORIDE 98 mmol/L (97-110); CREATININE 1.02 mg/dl (0.44-1.00); Estimated GFR 56 mL/min (>60); GLUCOSE 195 mg/dl (70-220); POTASSIUM 4.1 mmol/L (3.5-5.1); SODIUM 137 mmol/L (135-144)
[2018-12-14 07:05] LABS: % IRON SATURATION 14 % SAT (22-52); TOTAL IRON BINDING CAPACITY 285 ug/dl (241-421)
[2018-12-14] MEDS: INSULIN ASPART [NOVOLOG] 3 ML PEN SC ×7 (08:56→21:00)
[2018-12-14] MEDS: HEPARIN 5,000 UNIT/1 ML VIAL SC ×2 (08:59→20:44)
[2018-12-14] MEDS: GABAPENTIN 300 MG CAP PO ×3 (10:14→20:43)
[2018-12-14] MEDS: FOLIC ACID 1 MG TAB PO (10:14)
[2018-12-14] MEDS: FAMOTIDINE 20 MG TAB PO (10:15)
[2018-12-14] MEDS: ASCORBIC ACID 500 MG TAB PO (10:16)
[2018-12-14] MEDS: FERROUS SULFATE (EC) 325 MG TAB PO (10:16)
[2018-12-14] MEDS: FUROSEMIDE 40 MG TAB PO ×2 (10:16→20:44)
[2018-12-14] MEDS: ZINC SULFATE 220 MG CAP PO (10:16)
[2018-12-14] MEDS: LINAGLIPTIN 5 MG TABLET PO (10:16)
[2018-12-14] MEDS: ASPIRIN 81 MG TAB PO (10:17)
[2018-12-14] MEDS: POLYETHYLENE GLYCOL 17 GM PACKET PO (10:17)
[2018-12-14] MEDS: ZYVOX 600 MG TAB PO ×2 (10:19→20:44)
[2018-12-14] MEDS: NYSTATIN 30 GM POWDER BTL TOP (10:27)
[2018-12-14] MEDS: ERGOCALCIFEROL 50,000 UNIT CAP PO (15:18)
[2018-12-14] MEDS: ATORVASTATIN 10 MG TAB PO (20:43)
[2018-12-14] MEDS: INSULIN GLARGINE [LANTus] (100 UNITS/ML) SYG SC (20:45)
[2018-12-14] MEDS: LATANOPROST 0.005% 2.5 ML OPH BOTH EYES (21:00)
[2018-12-15] MEDS: DIPHENHYDRAMINE 1%/ZINC 28.3 GM CR TOP ×5 (01:17→23:21)
[2018-12-15] MEDS: NYSTATIN 30 GM POWDER BTL TOP ×3 (01:17→20:36)
[2018-12-15] MEDS: MEROPENEM 1 GM/50ML(PMX) 50 ML IVPB ×2 (01:34→09:31)
[2018-12-15] MEDS: ACCU-CHEK XX (01:39)
[2018-12-15] MEDS: morphine 2 MG INJ IV ×5 (04:17→21:07)
[2018-12-15] MEDS: INSULIN ASPART [NOVOLOG] 3 ML PEN SC ×7 (08:18→20:33)
[2018-12-15] MEDS: HEPARIN 5,000 UNIT/1 ML VIAL SC ×2 (08:20→20:33)
[2018-12-15] MEDS: ZINC SULFATE 220 MG CAP PO ×2 (08:21→09:31)
[2018-12-15] MEDS: POLYETHYLENE GLYCOL 17 GM PACKET PO ×2 (08:21→09:29)
[2018-12-15] MEDS: ASCORBIC ACID 500 MG TAB PO ×2 (08:21→09:31)
[2018-12-15] MEDS: ASPIRIN 81 MG TAB PO ×2 (08:21→09:31)
[2018-12-15] MEDS: GABAPENTIN 300 MG CAP PO ×3 (08:21→20:29)
[2018-12-15] MEDS: FOLIC ACID 1 MG TAB PO ×2 (08:21→09:31)
[2018-12-15] MEDS: FAMOTIDINE 20 MG TAB PO ×2 (08:21→09:32)
[2018-12-15] MEDS: ZYVOX 600 MG TAB PO ×2 (08:21→09:31)
[2018-12-15] MEDS: LINAGLIPTIN 5 MG TABLET PO (08:21)
[2018-12-15] MEDS: FUROSEMIDE 40 MG TAB PO ×3 (08:24→20:30)
[2018-12-15 12:26] LABS: ADD UMIC YES; UR ASCORBIC ACID NEGATIVE (NEGATIVE); UR BILIRUBIN (Dip) NEGATIVE (NEGATIVE); UR BLOOD (Dip) 2+ mg/dL (NEGATIVE); UR CLARITY SLIGHTLY CLOUDY (CLEAR); UR COLOR YELLOW (YELLOW); UR GLUCOSE (Dip) NEGATIVE (NEGATIVE); UR KETONES (Dip) NEGATIVE (NEGATIVE); UR LEUKOCYTE ESTERASE (Dip) 2+ Leu/ul (NEGATIVE); UR NITRITE (Dip) NEGATIVE (NEGATIVE); UR RBC 41 /HPF (0-5); UR SPECIFIC GRAVITY (Dip) 1.013 (1.003-1.030); UR SQUAMOUS EPITHELIAL CELL FEW /HPF (FEW); UR TOTAL PROTEIN (Dip) 1+ mg/dl (NEGATIVE); UR UROBILINOGEN (Dip) NEGATIVE (NEGATIVE); UR WBC 26 /HPF (0-5)
[2018-12-15] MEDS: CEFTRIAXONE 2 GM/50 ML (PMX) 50 ML IVPB (12:57)
[2018-12-15] MEDS: SOD FERRIC GLUC COMPLX 125 MG in SOD CHLORIDE 0.9% 100 ML IVPB (13:02)
[2018-12-15] MEDS: ATORVASTATIN 10 MG TAB PO (20:30)
[2018-12-15] MEDS: INSULIN GLARGINE [LANTus] (100 UNITS/ML) SYG SC (20:31)
[2018-12-15] MEDS: LATANOPROST 0.005% 2.5 ML OPH BOTH EYES (23:19)
[2018-12-16] MEDS: morphine 2 MG INJ IV ×3 (01:15→22:24)
[2018-12-16] MEDS: ACCU-CHEK XX ×2 (02:00→23:22)
[2018-12-16 05:45] LABS: ADD MAN DIFF? NO
[2018-12-16] MEDS: DIPHENHYDRAMINE 1%/ZINC 28.3 GM CR TOP ×4 (05:48→23:19)
[2018-12-16 05:53] LABS: BASOPHILS % 0.3 % (0.0-2.0); EOSINOPHILS # 0.4 10^3/ul (0.0-0.5); EOSINOPHILS % 5.8 % (0.0-7.0); HEMATOCRIT 36.4 % (37.0-47.0); HEMOGLOBIN 10.8 g/dl (12.0-16.0); LYMPHOCYTES % 15.2 % (15.0-51.0); MEAN CORPUSCULAR HEMOGLOBIN 26.1 pg (29.0-33.0); MEAN CORPUSCULAR HGB CONC 29.7 g/dl (32.0-37.0); MEAN CORPUSCULAR VOLUME 87.9 fl (82.0-101.0); MEAN PLATELET VOLUME 10.4 fl (7.4-10.4); MONOCYTE # 0.4 10^3/ul (0.3-0.9); MONOCYTES % 5.3 % (0.0-11.0); NEUTROPHIL # 4.9 10^3/ul (1.6-7.5); NEUTROPHILS % 73.1 % (39.0-77.0); PLATELET COUNT 362 10^3/UL (140-415); RED BLOOD COUNT 4.14 10^6/ul (4.20-5.40); RED CELL DISTRIBUTION WIDTH 15.2 % (11.5-14.5)
[2018-12-16 05:53] LABS: WHITE BLOOD COUNT 6.7 10^3/ul (4.8-10.8)
[2018-12-16] MEDS: GABAPENTIN 300 MG CAP PO ×4 (08:17→20:48)
[2018-12-16] MEDS: ASPIRIN 81 MG TAB PO (08:17)
[2018-12-16] MEDS: ZINC SULFATE 220 MG CAP PO ×2 (08:17→09:00)
[2018-12-16] MEDS: FAMOTIDINE 20 MG TAB PO ×2 (08:17→09:00)
[2018-12-16] MEDS: FOLIC ACID 1 MG TAB PO ×2 (08:17→09:00)
[2018-12-16] MEDS: ASCORBIC ACID 500 MG TAB PO ×2 (08:18→09:00)
[2018-12-16] MEDS: FUROSEMIDE 40 MG TAB PO ×2 (08:18→20:50)
[2018-12-16] MEDS: LINAGLIPTIN 5 MG TABLET PO (08:18)
[2018-12-16] MEDS: INSULIN ASPART [NOVOLOG] 3 ML PEN SC ×7 (08:19→20:52)
[2018-12-16] MEDS: HEPARIN 5,000 UNIT/1 ML VIAL SC ×2 (08:20→20:51)
[2018-12-16] MEDS: NYSTATIN 30 GM POWDER BTL TOP ×2 (08:21→20:57)
[2018-12-16 09:00] LABS: ANION GAP 5 (5-13); BLOOD UREA NITROGEN 32 mg/dl (7-20); CALCIUM 8.5 mg/dl (8.4-10.2); CARBON DIOXIDE 34 mmol/L (21-31); CHLORIDE 98 mmol/L (97-110); CREATININE 1.21 mg/dl (0.44-1.00); Estimated GFR 46 mL/min (>60); GLUCOSE 190 mg/dl (70-220); POTASSIUM 4.2 mmol/L (3.5-5.1); SODIUM 137 mmol/L (135-144)
[2018-12-16] MEDS: CEFTRIAXONE 2 GM/50 ML (PMX) 50 ML IVPB (13:15)
[2018-12-16] MEDS: SOD FERRIC GLUC COMPLX 125 MG in SOD CHLORIDE 0.9% 100 ML IVPB (13:15)
[2018-12-16] MEDS: ATORVASTATIN 10 MG TAB PO (20:48)
[2018-12-16] MEDS: LATANOPROST 0.005% 2.5 ML OPH BOTH EYES (20:48)
[2018-12-16] MEDS: INSULIN GLARGINE [LANTus] (100 UNITS/ML) SYG SC (20:51)
[2018-12-17] MEDS: DIPHENHYDRAMINE 1%/ZINC 28.3 GM CR TOP ×4 (05:04→23:38)
[2018-12-17] MEDS: morphine 2 MG INJ IV ×2 (07:03→11:30)
[2018-12-17] MEDS: INSULIN ASPART [NOVOLOG] 3 ML PEN SC ×7 (08:24→20:22)
[2018-12-17] MEDS: HEPARIN 5,000 UNIT/1 ML VIAL SC ×2 (08:25→20:18)
[2018-12-17] MEDS: ZINC SULFATE 220 MG CAP PO (08:26)
[2018-12-17] MEDS: FAMOTIDINE 20 MG TAB PO (08:26)
[2018-12-17] MEDS: POLYETHYLENE GLYCOL 17 GM PACKET PO (08:26)
[2018-12-17] MEDS: ASPIRIN 81 MG TAB PO (08:27)
[2018-12-17] MEDS: FOLIC ACID 1 MG TAB PO (08:27)
[2018-12-17] MEDS: ASCORBIC ACID 500 MG TAB PO (08:27)
[2018-12-17] MEDS: GABAPENTIN 300 MG CAP PO ×3 (08:27→20:18)
[2018-12-17] MEDS: LINAGLIPTIN 5 MG TABLET PO (08:27)
[2018-12-17] MEDS: FUROSEMIDE 40 MG TAB PO ×2 (08:27→20:21)
[2018-12-17] MEDS: NYSTATIN 30 GM POWDER BTL TOP ×2 (08:28→20:22)
[2018-12-17] MEDS: CLOTRIMAZOLE 1% 30 GM CR TOP ×2 (12:42→20:22)
[2018-12-17] MEDS: CEFTRIAXONE 2 GM/50 ML (PMX) 50 ML IVPB (14:07)
[2018-12-17] MEDS: INSULIN GLARGINE [LANTus] (100 UNITS/ML) SYG SC (20:17)
[2018-12-17] MEDS: LATANOPROST 0.005% 2.5 ML OPH BOTH EYES (20:19)
[2018-12-17] MEDS: ATORVASTATIN 10 MG TAB PO (20:22)
[2018-12-18] MEDS: ACCU-CHEK XX (00:07)
[2018-12-18] MEDS ORDERED: INSULIN ASPART [NOVOLOG] 3 ML PEN SC ×2 (01:00→21:00)
[2018-12-18] MEDS: INSULIN ASPART [NOVOLOG] 3 ML PEN SC ×9 (01:23→20:41)
[2018-12-18] MEDS: DIPHENHYDRAMINE 1%/ZINC 28.3 GM CR TOP ×4 (05:31→23:00)
[2018-12-18] MEDS: ASPIRIN 81 MG TAB PO (08:32)
[2018-12-18] MEDS: FUROSEMIDE 40 MG TAB PO ×2 (08:32→20:41)
[2018-12-18] MEDS: LINAGLIPTIN 5 MG TABLET PO (08:32)
[2018-12-18] MEDS: FAMOTIDINE 20 MG TAB PO (08:32)
[2018-12-18] MEDS: FOLIC ACID 1 MG TAB PO (08:32)
[2018-12-18] MEDS: POLYETHYLENE GLYCOL 17 GM PACKET PO (08:32)
[2018-12-18] MEDS: GABAPENTIN 300 MG CAP PO ×4 (08:32→20:42)
[2018-12-18] MEDS: ZINC SULFATE 220 MG CAP PO (08:33)
[2018-12-18] MEDS: ASCORBIC ACID 500 MG TAB PO (08:33)
[2018-12-18] MEDS: NYSTATIN 30 GM POWDER BTL TOP ×2 (08:40→20:43)
[2018-12-18] MEDS: CLOTRIMAZOLE 1% 30 GM CR TOP ×2 (08:41→20:43)
[2018-12-18] MEDS ORDERED: MIDAZOLAM 1 MG/ML 2 ML INJ ×2 (10:37)
[2018-12-18] MEDS ORDERED: PROPOFOL 100 ML (10:38)
[2018-12-18] MEDS ORDERED: morphine SULFATE/PF (10 MG/10 ML) INJ (10:38)
[2018-12-18] MEDS ORDERED: ONDANSETRON 4 MG INJ (10:52)
[2018-12-18] MEDS ORDERED: DEXAMETHASONE 4 MG/ML 5 ML INJ (10:52)
[2018-12-18] MEDS ORDERED: KETOROLAC 30 MG INJ (10:52)
[2018-12-18] MEDS ORDERED: METOCLOPRAMIDE 10 MG INJ (10:52)
[2018-12-18] MEDS: POLYMYXIN B 500000 UNIT INJ (11:15)
[2018-12-18] MEDS: BACITRACIN 50000 UNITS INJ (11:15)
[2018-12-18] MEDS: POLYMYXIN/BACITRACIN 1L IRRIG (11:15)
[2018-12-18] MEDS ORDERED: HETASTARCH 6% NACL 500 ML (11:22)
[2018-12-18] MEDS ORDERED: EPHEDrine 25 MG/5 ML SYG (11:22)
[2018-12-18] MEDS ORDERED: PHENYLephrine (100 MCG/ML) 10ML SYG (11:22)
[2018-12-18] MEDS ORDERED: LABETALOL HCL 20MG INJ IV (11:30)
[2018-12-18] MEDS ORDERED: HYDROmorphONE 0.5 MG/0.5 ML SYG IV (11:30)
[2018-12-18] MEDS ORDERED: EPHEDrine 25 MG/5 ML SYG IV (11:30)
[2018-12-18] MEDS ORDERED: ONDANSETRON 4 MG INJ IV ×2 (11:30)
[2018-12-18] MEDS ORDERED: FENTAnyl 50 MCG/ML VIAL IV (11:30)
[2018-12-18] MEDS ORDERED: NALBUPHINE HCL (10 MG/1 ML) INJ IV (11:30)
[2018-12-18] MEDS ORDERED: NALOXONE (0.4 MG/ML) INJ IV (11:30)
[2018-12-18] MEDS ORDERED: METOCLOPRAMIDE 10 MG INJ IV (11:30)
[2018-12-18] MEDS ORDERED: ACETAMINOPHEN 500 MG TAB PO (11:30)
[2018-12-18] MEDS ORDERED: HYDROmorphONE 1 MG/5 ML IV SYRINGE IV ×2 (11:30)
[2018-12-18] MEDS ORDERED: morphine 2 MG INJ IV (11:30)
[2018-12-18] MEDS ORDERED: ALBUMIN HUMAN 5% 250 ML IV (11:30)
[2018-12-18] MEDS ORDERED: hydrALAzine 20 MG INJ IV (11:30)
[2018-12-18] MEDS ORDERED: TRIMETHOBENZAMIDE 100 MG/ML VIAL IM (11:30)
[2018-12-18] MEDS ORDERED: HYDROCODONE/APAP (5/325) TAB PO (11:30)
[2018-12-18] MEDS ORDERED: OXYCODONE/ACETAMINOPHEN (5/325) TAB PO ×2 (11:30)
[2018-12-18] MEDS: CEFTRIAXONE 2 GM/50 ML (PMX) 50 ML IVPB (13:00)
[2018-12-18] MEDS: ONDANSETRON 4 MG INJ IV (17:10)
[2018-12-18] MEDS: DIPHENHYDRAMINE 50 MG INJ IV (17:10)
[2018-12-18] MEDS: INSULIN GLARGINE [LANTus] (100 UNITS/ML) SYG SC (20:40)
[2018-12-18] MEDS: ATORVASTATIN 10 MG TAB PO (20:41)
[2018-12-18] MEDS: LATANOPROST 0.005% 2.5 ML OPH BOTH EYES (20:43)
[2018-12-19] MEDS: ACCU-CHEK XX (01:21)
[2018-12-19] MEDS: DIPHENHYDRAMINE 1%/ZINC 28.3 GM CR TOP ×3 (05:01→17:08)
[2018-12-19] MEDS: INSULIN ASPART [NOVOLOG] 3 ML PEN SC ×6 (08:15→17:11)
[2018-12-19] MEDS: POLYETHYLENE GLYCOL 17 GM PACKET PO (08:41)
[2018-12-19] MEDS: ASCORBIC ACID 500 MG TAB PO (08:42)
[2018-12-19] MEDS: FAMOTIDINE 20 MG TAB PO (08:42)
[2018-12-19] MEDS: FUROSEMIDE 40 MG TAB PO (08:42)
[2018-12-19] MEDS: GABAPENTIN 300 MG CAP PO ×2 (08:42→12:06)
[2018-12-19] MEDS: FOLIC ACID 1 MG TAB PO (08:42)
[2018-12-19] MEDS: ASPIRIN 81 MG TAB PO (08:42)
[2018-12-19] MEDS: NYSTATIN 30 GM POWDER BTL TOP (08:43)
[2018-12-19] MEDS: LINAGLIPTIN 5 MG TABLET PO (08:43)
[2018-12-19] MEDS: ZINC SULFATE 220 MG CAP PO (08:43)
[2018-12-19] MEDS: CLOTRIMAZOLE 1% 30 GM CR TOP (08:44)
[2018-12-19] MEDS: CEFTRIAXONE 2 GM/50 ML (PMX) 50 ML IVPB (12:06)
[2018-12-19] MEDS: HYDROCODONE/APAP (5/325) TAB PO (16:17)
== END 2018-12-19 19:35 | DRG 571 ==
LOC: MS3 12-13 23:58 → E/R 11:29 → PP2 19:13
PROC: 0JBP0ZZ Excision of Left Lower Leg Subcutaneous Tissue and Fascia, Open Approach (ICD-10-PCS; principal; 2018-12-18 10:35)
PROC: 0JBN0ZZ Excision of Right Lower Leg Subcutaneous Tissue and Fascia, Open Approach (ICD-10-PCS; 2018-12-18 10:35)
PROC: 0HBLXZX Excision of Left Lower Leg Skin, External Approach, Diagnostic (ICD-10-PCS; 2018-12-18 10:35)
PROC: 0HBKXZX Excision of Right Lower Leg Skin, External Approach, Diagnostic (ICD-10-PCS; 2018-12-18 10:35)
DX: L03.116 Cellulitis of left lower limb (principal); Z68.43 Body mass index [BMI] 50.0-59.9, adult; I87.313 Chronic venous hypertension (idiopathic) with ulcer of bilateral lower extremity; L97.829 Non-pressure chronic ulcer of other part of left lower leg with unspecified severity; L97.819 Non-pressure chronic ulcer of other part of right lower leg with unspecified severity; E88.81 Metabolic syndrome and other insulin resistance; E66.01 Morbid (severe) obesity due to excess calories; I87.2 Venous insufficiency (chronic) (peripheral); L03.115 Cellulitis of right lower limb; F79 Unspecified intellectual disabilities; H54.7 Unspecified visual loss; I10 Essential (primary) hypertension; E78.5 Hyperlipidemia, unspecified; F41.9 Anxiety disorder, unspecified; D50.9 Iron deficiency anemia, unspecified; E55.9 Vitamin D deficiency, unspecified; B96.4 Proteus (mirabilis) (morganii) as the cause of diseases classified elsewhere; B95.4 Other streptococcus as the cause of diseases classified elsewhere; Z79.4 Long term (current) use of insulin
CPT/HCPCS: 80048; 80053; 81001; 82652; 82962; 83036; 83540; 83735; 84100; 84703; 85025; 87040-91; 87070; 87075; 87081; 87086; 87102; 88304; 93922; 96374; 96375; 99285-25